=== PATIENT | male | born 2005 | race Caucasian/White ===

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

== ENCOUNTER 2023-05-20 13:40 | Emergency (ER) | payer MEDICAID, SELFPAY ==
[2023-05-20 13:48] VITALS: BP 115/70; PULSE 100; RESP 16; TEMP 36.8; O2SAT 96; BMI 18.3
--- NOTE | 2023-05-20 14:38 | CRLHL7_ITS ---
For Patients: As a result of the Cures Act, medical imaging exams and procedure reports are released immediately into your electronic medical record. You may view this report before your referring provider. If you have questions, please contact your health care provider. INDICATION: Right thigh pain, atraumatic. TECHNIQUE: Right femur radiographs, 2 views. COMPARISON: None. FINDINGS: No acute fractures or dislocation. The joint spaces are preserved. No suspicious periosteal reaction or osseous erosions. No significant soft tissue edema or radiopaque foreign bodies. IMPRESSION: No acute fracture or dislocation. Unremarkable radiographs of the right femur. Dictated by Harman Valladares MD @ 05/20/2023 2:57:45 PM (Electronically Signed)
--- NOTE | 2023-05-20 14:43 | ED_ITS ---
HPI - General Adult General Date Seen: 05/20/23 Chief complaint: Extremity Pain/Injury, Lower Stated complaint: R leg pain Time Seen by Provider: 05/20/23 14:28 Source: patient and family Mode of arrival: ambulatory Limitations: no limitations History of Present Illness HPI narrative: Patient is a 17-year-old here with mom for evaluation of pain in his right thigh which has been present for about a week. He notices it most when he is lying down. He denies any injury. On the nurse's note there was mention of bruising and swelling. He has not had any swelling in the distal leg, he has not had radiating pain, he does not have difficulty with ambulation. He does not take any blood thinners, does not have history of DVT or PE. He says he tried ibuprofen and it was not helpful. Related Data Home Medications Medication Instructions Recorded Confirmed No Known Home Medications 03/01/22 05/20/23 Allergies Allergy/AdvReac Type Severity Reaction Status Date / Time No Known Drug Allergies Allergy Verified 05/20/23 13:54 Review of Systems Status of ROS: Reports: 6 or more systems reviewed and unremarkable except as noted in History and below 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, unspecified (ICD-10) Alcohol abuse ?F10.10 - Alcohol abuse, uncomplicated (ICD-10) Marijuana abuse ?F12.10 - Cannabis abuse, uncomplicated (ICD-10) Surgical History H/O hernia repair ?Z98.890 - Other specified postprocedural states (ICD-10) ?Z87.19 - Personal history of other diseases of the digestive system (ICD-10) History of ileostomy ?Z98.890 - Other specified postprocedural states (ICD-10) Status post exploratory laparotomy ?Z98.890 - Other specified postprocedural states (ICD-10) Social History Highest level of school completed/degree received: high school graduate Smoking Status: Never smoker Do you use any of these nicotine containing products: None Second hand tobacco smoke exposure: No How often do you have a drink containing alcohol: 2-4 times a month Alcohol type: beer and hard liquor How many standard drinks containing alcohol do you have on a typical day: 5 or 6 How often do you have six or more drinks on one occasion: Weekly AUDIT-C Alcohol total score: 7 Non-prescribed substance use: marijuana (any form) Caffeine: Yes service: No Exam Narrative: Exam Narrative: Vital signs reviewed In general, alert, nontoxic male, looks comfortable. Extremities: Examination of the right lower extremity shows between normal in appearance. I do not see any swelling, his mom points out several areas where she feels the skin is bruised, I do not actually see any bruising at this time however. There is no distal edema, pulses are intact bilaterally. Distal CMS is intact. No erythema or warmth. He has full range of motion at the knee, intact strength of the quadriceps muscles. Skin: Warm dry well perfused. He is heavily tattooed, but all tattoos are old. No rash or lesion. Const: Vital Signs, click to edit/add: Vital Signs - 24 hr 05/20/23 13:48 Temperature 98.2 F Pulse Rate [Right Pulse Oximeter] 100 Respiratory Rate 16 Blood Pressure [Ri ght Upper Arm] 115/70 Pulse Oximetry 96 Oxygen Delivery Me thod Room Air Documenting provider has reviewed patient's vital signs: yes Course Course ED Course: Mom expresses concern about possible blood clot secondary to a family member having which she says were identical symptoms and subsequently being diagnosed with blood clot. Discussed with her that the pain is in the an atypical location and overall symptoms are not suggestive of DVT. He does not have radicular symptoms to suggest a disc as an etiology. Pain is directly over the anterior thigh, not in an area likely to be meralgia paresthetica. Pain is likely muscular, will do an x-ray to rule out any underlying bony pathology. Recommended otherwise conservative measures, scheduled ibuprofen and ice and primary care follow-up if not improving with conservative measures. No evidence of hematoma or cellulitis. For significant worsening such as diffuse swelling, redness, fevers etcetera, return any time for re-evaluation. Vital Signs Vital signs: Initial Vital Signs Temperature 98.2 F 05/20/23 13:48 Temperature Source Temporal Artery Scan 05/20/23 13:48 Pulse Rate 100 05/20/23 13:48 Respiratory Rate 16 05/20/23 13:48 Blood Pressure 115/70 05/20/23 13:48 Blood Pressure Mean 85 05/20/23 13:48 Blood Pressure Position Sitting 05/20/23 13:48 Pulse Oximetry 96 05/20/23 13:48 Oxygen Delivery Method Room Air 05/20/23 13:48 Vital Signs Temperature 98.2 F 05/20/23 13:48 Pulse Rate 100 05/20/23 13:48 Respiratory Rate 16 05/20/23 13:48 Blood Pressure 115/70 05/20/23 13:48 Pulse Oximetry 96 05/20/23 13:48 Oxygen Delivery Method Room Air 05/20/23 13:48 Temperature 98.2 F 05/20/23 13:48 Pulse Rate 100 05/20/23 13:48 Respiratory Rate 16 05/20/23 13:48 Blood Pressure 115/70 05/20/23 13:48 Pulse Oximetry 96 05/20/23 13:48 Oxygen Delivery Method Room Air 05/20/23 13:48 Discharge Plan Discharge Clinical Impression: Acute pain of right thigh Patient Disposition: Home, Self-Care Condition: Stable Instructions: Leg Pain (ED) Additional Instructions: I would recommend a combination of ibuprofen, 400 mg 3 times daily +/-1000 mg Tylenol 3 times daily. Ice 2 to 3 times a day. If no improvement despite conservative measures over the next week, follow-up with primary care for recheck. Return any time for acute changes such as significant swelling of the leg, diffuse redness, fevers, or other significant changes. Prescriptions: No Action No Known Home Medications Follow Up/Referrals: Provider,Not a Local [Primary Care Provider] - Stand Alone Forms: MyHealth Info Instructions
--- OUTSIDE RECORDS SUMMARY | 2023-05-20 15:01 | XMS_ITS | Referral Summary ---
Author Name Unknown Organization [facility] Address [address] [place] [address] Care Team Providers Care Soda Flaker Name Role Phone Elsewhere, Pcp Primary Care Provider Unavailabl e Source Comments Patient records contain information from all sites at [facility]. For routine questions regarding patient records, call [phone] during business hours, M-F 8:00 AM - 5:00 PM Central Time. Record requests for emergency care only can be directed to [phone] at any time.[facility] Encounters Date Type Department Care Team Description 05/06/2023 9:23 AM CALENDERER - 05/06/2023 11:59 PM [facility] Hospital Encounter Division of marketing senior recruiter in [place], [place] [address] [place] [phone] Vince Bai M.D., D.D.S. Discharge Disposition: Home or Self Care 05/06/2023 8:59 AM CALENDERER - 05/06/2023 9:22 AM [facility] Hospital Encounter Division of marketing senior recruiter in [place], [place] [address] [place] [phone] Vince Bai M.D., D.D.S. Impacted Tooth Third Molar (Primary Dx) Discharge Disposition: Home or Self Care from Last 3 Months Allergies No known active allergies Medications Medication Sig Dispensed Refills Start Date End Date Status oxyCODONE (ROXICODONE) 5 mg immediate release tabletIndications:Acu te Pain Take 1-2 tablets (5-10 mg total) by mouth every 4 (four) hours as needed for pain 10 tablet 0 05/06/2023 Active Active Problems Problem Noted Date Diagnosed Date Impacted Tooth Third Molar 05/06/2023 Immunizations Name Administration Dates Next Due DTaP (Infanrix, Tripedia) 01/05/2008,10/14/2007, 06/16/2005 DTaP / Hep B / IPV (Pediarix) 07/23/2004, 005,03/03/2004 HepA Pediatric/Adolescent 11/19/2009,10/14/2007 Hib (PRP-T) (ACTHIB, HIBERIX) 05/07/2004, 004 Hib-HepB 06/16/2005 IPV 01/05/2008,10/14/2007 Influenza, Unspecified 03/27/2010,02/19/2005, MMR 10/14/2007,06/16/2005 PCV7 (discontinued) 06/16/2005,07/23/2004,2004,03/03/2004 TABATHA 10/14/2007,06/16/2005 Social History Tobacco Use Types Packs/Day Years Used Date Smoking Tobacco: Never Smokeless Tobacco: Never Tobacco Cessation:Counseling Given: Not Answered Alcohol Use Standard Drinks/Week Comments Yes 0 (1 standard drink = 0.6 oz pur e alcohol) Nutrition Answer Date Recorded Nutrition: EVOO Fat Source Unknown 04/20 Nutrition: Servings of Fruits/Vegetables per Day Not on file 04/20/2023 Dental Answer Date Recorded Dental: Regular Dentist Unknown 04/20/20 Sex and Gender Information Value Date Recorded Sex Assigned at Not on file Gender Identity Not on file Sexual Orientation Not on file Last Filed Vital Signs Vital Sign Reading Time Taken Comments Blood Pressure 136/90 05/06/2023 10:40 AM CALENDERER Pulse 98 05/06/2023 10:41 AM CALENDERER Temperature - - Respiratory Rate - - Oxygen Saturation 100% 05/06/2023 10:41 AM CALENDERER Inhaled Oxygen Concentration - - Weight 50.4 kg (111 lb 1.8 oz) 05/06/2023 9:34 A M CALENDERER Height 165 cm (5' 4.96) 05/06/2023 9:34 AM CALENDERER Body Mass Index 18.51 05/06/2023 9:34 AM CALENDERER Plan of Treatment Not on file Procedures Procedure Name Priority Date/Time Associated Diagnosis Comments OMS PANOREX Routine 05/06/2023 10:17 AM CALENDERER Impacted Tooth Third Molar from Last 3 Months Results * OMS Panorex (05/06/2023 10:17 AM CALENDERER) Vince Bai M.D., LynneSAnu PROCEDURE/M INOR SURGICAL ORDERABLES from Last 3 Months Care Teams Soda Flaker Relationship Specialty Start Date End Date Elsewhere, Pcp PCP - General 12/25/18
--- OUTSIDE RECORDS SUMMARY | 2023-05-20 15:01 | XMS_ITS | Encounter Summary ---
Author Name Unknown Organization [facility] Address [address] [place] [id number] Care Team Providers Care Senior Behavioral Scientist Name Role Phone Elsewhere, Pcp Primary Care Provider Unavailabl e Reason for Visit * Outpatient (Routine) - Closed Specialty Diagnoses / Procedures Referred By Contac t Referred To Contact Diagnoses Impacted Tooth Third Molar Procedures OMS Panorex Vince Bai M.D., D.D.S. [address] [place] [phone] [facility] Referral ID Status Reason Start Date Expiration Date Visits Re quested Visits Authorized [id number] Closed 05/06/2023 05/05/2024 1 1 Encounter Details Date Type Department Care Team (Latest Contact Info) Description 05/06/2023 9:23 AM PHOTOGRAPH PRINTER - 05/06/2023 11:59 PM [facility] Hospital Encounter Division of nurse advisor in [place], [place] [address] [place] [phone] Vince Bai M.D., D.D.S. [address] [place] [phone] Discharge Disposition: Home or Self Care Social History Tobacco Use Types Packs/Day Years Used Date Smoking Tobacco: Never Smokeless Tobacco: Never Alcohol Use Standard Drinks/Week Comments Yes 0 [...] on file Sexual Orientation Not on file documented as of this encounter Medications at Time of Discharge Medication Sig Dispensed Refills Start Date End Date oxyCODONE (ROXICODONE) 5 mg immediate release tabletIndications:Acute Pain Take 1-2 tablets (5-10 mg total) by mouth every 4 (four) hours as needed for pain 10 tablet 0 05/06/2023 documented as of this encounter Plan of Treatment Not on file documented as of this encounter Procedures Procedure Name Priority Date/Time Associated Diagnosis Comments OMS PANOREX Routine 05/06/2023 10:17 AM PHOTOGRAPH PRINTER Impacted Tooth Third Molar documented in this encounter Results * OMS Panorex (05/06/2023 10:17 AM PHOTOGRAPH PRINTER) Vince Bai M.D., D.D.S. PROCEDURE/M INOR SURGICAL ORDERABLES documented in this encounter Visit Diagnoses Not on filedocumented in this encounter Care Teams Senior Behavioral Scientist Relationship Specialty Start Date End Date Elsewhere, Pcp PCP - General 12/25/18 documented as of this encounter
--- OUTSIDE RECORDS SUMMARY | 2023-05-20 15:01 | XMS_ITS | Clinical Summary ---
Author Name Unknown Organization [facility] Address [address] [place] [address] Care Team Providers Care Clerical Transcriber Name Role Phone Elsewhere, Pcp Primary Care Provider Unavailabl e Source Comments Patient records contain information from all sites at [facility]. For routine questions regarding patient records, call [phone] during business hours, M-F 8:00 AM - 5:00 PM Central Time. Record requests for emergency care only can be directed to [phone] at any time.[facility] Allergies No known active allergies Medications Medication Sig Dispensed Refills Start Date End Date Status oxyCODONE (ROXICODONE) 5 mg immediate release tabletIndications:Acu te Pain Take 1-2 tablets (5-10 mg total) by mouth every 4 (four) hours as needed for pain 10 tablet 0 05/06/2023 Active Active Problems Problem Noted Date Diagnosed Date Impacted Tooth Third Molar 05/06/2023 Encounters Date Type Department Care Team Description 05/06/2023 9:23 AM SUPERVISOR SCENIC ARTS - 05/06/2023 11:59 PM SUPERVISOR [employer] Hospital Encounter Division of elementary reading tutor in [place], [place] [address] [place] [phone] Vince Bai M.D., D.D.S. Discharge Disposition: Home or Self Care 05/06/2023 8:59 AM SUPERVISOR SCENIC ARTS - 05/06/2023 9:22 AM SUPERVISOR SCENIC ARTS Hospital Encounter Division of elementary reading tutor in [place], [place] [address] [place] [phone] Vince Bai M.D., D.D.S. Impacted Tooth Third Molar (Primary Dx) Discharge Disposition: Home or Self Care from Last 3 Months Immunizations Name Administration Dates Next Due DTaP [...] Comments Blood Pressure 136/90 05/06/2023 10:40 AM SUPERVISOR SCENIC ARTS Pulse 98 05/06/2023 10:41 AM SUPERVISOR SCENIC ARTS Temperature - - Respiratory Rate - - Oxygen Saturation 100% 05/06/2023 10:41 AM SUPERVISOR SCENIC ARTS Inhaled Oxygen Concentration - - Weight 50.4 kg (111 lb 1.8 oz) 05/06/2023 9:34 A M SUPERVISOR SCENIC ARTS Height 165 cm (5' 4.96) 05/06/2023 9:34 AM SUPERVISOR SCENIC ARTS Body Mass Index 18.51 05/06/2023 9:34 AM SUPERVISOR SCENIC ARTS Plan of Treatment Health Maintenance Due Date Last Done Comments HIV Screening 2003 Hearing Screening during Well Child Visit 2003 Hepatitis C Screening 2003 1 week Well Child Check-Up 2003 1 month Well Child Check-Up 2003 2 month Well Child Check-Up 01/30/2004 4 month Well Child Check-Up 03/16/2004 6 month Well Child Check-Up 05/16/2004 COVID-19 Vaccine (#1) 06/16/2004 9 month Well Child Check-Up 08/14/2004 12 month Well Child Check-Up 11/13/2004 15 month Well Child Check-Up 02/13/2005 18 month Well Child Check-Up 05/16/2005 2 year Well Child Check-Up 11/13/2005 30 month Well Child Check-Up 05/16/2006 3 year Well Child Check-Up 11/13/2006 4 year Well Child Check-Up 11/14/2007 5 year Well Child Check-Up 11/13/2008 6 year Well Child Check-Up 11/13/2009 7 year Well Child Check-Up 11/13/2010 8 year Well Child Check-Up 11/14/2011 9 year Well Child Check-Up 11/13/2012 10 year Well Child Check-Up 11/13/2013 11 year Well Child Check-Up 11/13/2014 12 year Well Child Check-Up 11/14/2015 13 year Well Child Check-Up 11/13/2016 14 year Well Child Check-Up 11/13/2017 Vision Screening during Well Child Visit 12/14/2017 15 year Well Child Check-Up 11/13/2018 16 year Well Child Check-Up 11/14/2019 17 year Well Child Check-Up 11/13/2020 16 year Well Child Check-Up 11/13/2021 17 year Well Child Check-Up 11/13/2022 Well Child Check-Up ([facility]) 11/13/2022 Influenza Vaccine (#1) 2023 , 03/27/2010, 02/19/2005, Additional history exists Depression Screening (Annual PHQ-2) 04/26/2023 DTaP,Tdap,and Td Vaccines (6 - Td or Tdap) 01/02/2026 01/03/2016, 01/05/2008, 10/14/2007, Additional history exists Hepatitis B Vaccines Completed 06/16/2005, 07/23/2004, 05/07/2004, Additional history exists Pneumococcal vaccine (0-64 years) Aged Out 06/16/2005, 07/23/2004, 05/07/2004, Additional history exists No longer eligible based on patient's age to complete this topic MMR Vaccines Completed 10/14/2007, 06/16/2005 Varicella Vaccines Completed 10/14/2007, 06/16/2005 HPV Vaccines Completed 12/23/2016, 01/03/2016 Meningococcal Vaccine Completed 03/09/2022, 016 Procedures Procedure Name Priority Date/Time Associated Diagnosis Comments OMS PANOREX Routine 05/06/2023 10:17 AM SUPERVISOR SCENIC ARTS Impacted Tooth Third Molar from Last 3 Months Results * OMS Panorex (05/06/2023 10:17 AM SUPERVISOR SCENIC ARTS) Vince Bai M.D., LynneS. PROCEDURE/M INOR SURGICAL ORDERABLES from Last 3 Months Care Teams Clerical Transcriber Relationship Specialty Start Date End Date Elsewhere, Pcp PCP - General 12/25/18
--- OUTSIDE RECORDS SUMMARY | 2023-05-20 15:01 | XMS_ITS ---
Author Name Unknown Organization [facility] Address [address] [place] [address] Care Team Providers Care Reinforcing Steel Machine Operator Name Role Phone Unavailable Unavailable Unavailable Surgery Details Not on file Complications Check Surgery Details section. Procedure Estimated Blood Loss Check Surgery Details section. Procedure Findings Check Surgery Details section. Procedure Specimens Taken Check Surgery Details section.
--- OUTSIDE RECORDS SUMMARY | 2023-05-20 15:01 | XMS_ITS | Clinical Summary ---
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, without psychotic features 04/06/2017 SHANE (generalized anxiety disorder) 04/06/2017 Deliberate self-cutting 04/06/2017 ADHD (attention deficit hype ractivity disorder), combined type 04/06/2017 Oppositional defiant disorder 04/06/2017 Immunizations Name Administration Dates Next Due DTP 10/14/2007 DTaP 01/05/2008,10/14/2007,06/16/2005 [id number]-[id number] (Pediarix) 07/23/2004,05/07/2004,1 2003 HIB PRP-OMP (PedvaxHIB) 05/07/2004,03/03/2004 HIB-HepB (Comvax) 06/16/2005 HPV 9 (Gardasil 9) 12/23/2016,01/03/2016 Hepatitis A (Peds) 11/19/2009 Hepatitis A (Peds),Unspecified 10/14/2007 Hepatitis A, Unspecified 11/19/2009,10/14/2007 Inactivated Polio Vaccine 12/23/2016,02/2008,10/14/2007,08/05,07/23/2004,03/03/2004 Influenza Virus, Unspecified 03/27/2010,02/20/20 05 Influenza, IIV3 (Age >=3 years) 06/18/2004 MMR 10/14/2007,06/16/2005 Meningococcal Vaccine (Menveo) 01/03/2016 Pneumococcal conj 7-Valent (Prevnar 7) 0 06/16/2005,07/23/2004,05/07/2004,03/03 Tdap 01/03/2016 Varicella Vaccine 10/14/2007,06/16/2005 Family History Medical History Relation Name Comments Heart Disease No Family History Relation Name Status Comments Brother 1 Alive Brother 2 Alive Brother 3 Alive Father Alive Mother Alive Social History Tobacco Use Types Packs/Day Years Used Date Smoking Tobacco: Former Smokeless Tobacco: Never Tobacco Cessation:Counseling Given: Yes Alcohol Use Standard Drinks/Week Comments No 0 (1 standard drink = 0.6 oz pur e alcohol) PHQ-2 Answer Date Recorded PHQ-2 TOTAL SCORE 3 09/17/2021 Social Connections Answer Date Recorded Frequency of Communication with Friends and Fami ly Not on file 09/17/2021 Sex and Gender Information Value Date Recorded Sex Assigned at Not on file Gender Identity Not on file Sexual Orientation Not on file Obstetrics History Last Filed Vital Signs Vital Sign Reading Time Taken Comments Blood Pressure 113/76 11/11/2022 1:46 PM CDT Pulse 85 11/11/2022 1:46 PM CDT Temperature 37 ??C (98.6 ??F) 11/11/2022 1:46 PM CDT Respiratory Rate 20 09/03/2013 3:22 PM CDT Oxygen Saturation 98% 11/11/2022 1:46 PM CDT Inhaled Oxygen Concentration - - Weight 52.6 kg (116 lb) 11/11/2022 1:46 PM CDT Height 164 cm (5' 4.57) 09/17/2021 2:03 PM CDT Body Mass Index - - Plan of Treatment Health Maintenance Due Date Last Done Comments COVID-19 vaccine series (#1) 06/16/2004 Well Child Check for age 3-20 01/02/2017 01/03/2016 HIV for age 15-65 12/14/2018 BMI (ht and wt on same day) for age 18+ 12/14/2021 Hepatitis C screening for age 18-79 12/14/2021 Depression screening for age 12+ 09/17/2022 09/17/2021, 07/12/2017, 06/15/2017, Additional history exists Influenza for age 9-49 12/25/2022 0, 02/19/2005, 06/18/2004 Tetanus booster 01/02/2026 01/03/2016 Pneumococcal series for age 6-64 Aged Out 06/16/2005, 07/23/2004, 05/07/2004, Additional history exists No longer eligible based on patient's age to complete this topic Meningococcal series for age 11-21 Aged Out 01/03/2016 No longer eligible based on patient's age to complete this topic Tdap Completed 01/03/2016 HPV series for age 9-26 Completed 12/23/2016, 01/02 Care Teams Circuit Manager Relationship Specialty Start Date End Date Casper Escalante DO [address] [place], [place] [id number] PCP - General Family Practice 03/09/17
--- OUTSIDE RECORDS SUMMARY | 2023-05-20 15:01 | XMS_ITS | Encounter Summary ---
Author Name Unknown Organization [facility] Address [address] [place] [id number] Care Team Providers Care Emergency Room Rn Name Role Phone Elsewhere, Pcp Primary Care Provider Unavailabl e Reason for Referral * Outpatient (Routine) - Closed Specialty Diagnoses / Procedures Referred By Lui tyson Referred To Contact Diagnoses Impacted Tooth Third Molar Procedures OMS Panorex Vince Bai M.D., D.D.S. [address] [place] [phone] [facility] Referral ID Status Reason Start Date Expiration Date Visits Re quested Visits Authorized [id number] Closed 05/06/2023 05/05/2024 1 1 ERY OPERATOR Reason for Visit * Appointment Request (Routine) - Closed Specialty Diagnoses / Procedures Referred By Lui tyson Referred To Contact bank courier Octavio Dumont D.D.S. Referral ID Status Reason Start Date Expiration Date Visits Re quested Visits Authorized [id number] Closed 01/13/2023 01/13/2024 1 1 Encounter Details Date Type Department Care Team (Latest Contact Info) Description 05/06/2023 8:59 AM BINDERY OPERATOR - 05/06/2023 9:22 AM BINDERY OPERATOR Hospital Encounter Division of bank courier in [place], [place] [address] [place] [phone] Vince Bai M.D., D.D.S. [address] [place] [phone] Impacted Tooth Third Molar (Primary Dx) Discharge Disposition: Home or Self Care Social [...] on file documented as of this encounter Last Filed Vital Signs Vital Sign Reading Time Taken Comments Blood Pressure 136/90 05/06/2023 10:40 AM BINDERY OPERATOR Pulse 98 05/06/2023 10:41 AM BINDERY OPERATOR Temperature - - Respiratory Rate - - Oxygen Saturation 100% 05/06/2023 10:41 AM BINDERY OPERATOR Inhaled Oxygen Concentration - - Weight 50.4 kg (111 lb 1.8 oz) 05/06/2023 9:34 A M BINDERY OPERATOR Height 165 cm (5' 4.96) 05/06/2023 9:34 AM BINDERY OPERATOR Body Mass Index 18.51 05/06/2023 9:34 AM BINDERY OPERATOR documented in this encounter Discharge Instructions * Patient Instructions* Melissa Lang L.D.A. - 05/06/2023 10:00 AM BINDERY OPERATOR Images from the original note were not included. Contact Numbers for bank courier During weekday hours (usual business hours) [phone] Evening or Weekends [phone] (ask for the Oral Surgeon program coordinator executive education) Pain Management Recommendations after Removal of Lamont Teeth Start taking pain medication before pain starts - preferably before the local anesthesia has worn off (within first 2-3 hours after your procedure). Get something in your stomach prior to starting the medications to help avoid nausea - a Frosty from [employer] is a good option because you must use a spoon (No straws after extractions) Over the counter medications (Tylenol and Aleve) are the most effective medications to control oralsurgical pain in most instances. Aleve is more potent than Advil or Ibuprofen (3 Aleve = 16 Advil or Ibuprofen tabs) Give the Tylenol and Aleve tablets ON SCHEDULE rather than as needed This will keep these medications at a consistent level in the body, thus helping to control breakthrough pain. Start this schedule as soon as you get home and continue for 3-5 days Tylenol can be taken with an empty stomach. Aleve must be taken with food or milk A small number of patients may be given a prescription for Oxycodone. If this was prescribed, be aware it is a narcotic and is to be used only as needed. Breakfast Aleve (naproxen) 220 mg with food/milk If prescribed, use Oxycodone only as needed to control pain throughout the day and night. Take withfood/milk. Mid-morning Tylenol 1000 mg Lunch Aleve (naproxen) 220 mg with food/milk Mid-afternoon Tylenol 1000 mg Dinner Aleve (naproxen) 220 mg with food/milk Bedtime Tylenol 1000 mg Most patients will need some pain medications for 3 to 5 days after the procedure. At that point the medications can be decreased and then stopped as tolerated Call our practice at any time if you have questions about pain control or problems - we want to make your recovery as comfortable as possible Care After Tooth Removal Surgery Care the Day of Surgery Use this information to help you recover after tooth removal surgery. Start the day of your surgery. Surgical site To control bleeding and to help a blood clot form, your provider places gauze on the surgical site.You are asked to use firm pressure to bite down on the gauze. Be sure you understand when and how to remove or change the gauze. Talk to a member of your health care team if you have questions. If blood clots dislodge or break away, you may have bleeding that delays healing. Avoid these actions, which can dislodge blood clots: Do not rinse your mouth, spit or brush your teeth on the day of your surgery. Do not use straws for five days after surgery. Do not smoke for at least five days after surgery. Smoking can delay healing and lead to a dry socket. Eating and drinking Eat only soft foods for the first few days. Do not chew near the surgical site. Drink clear liquids to help prevent dehydration. Drink enough liquids, about 1 to 2 liters a day, to keep your urine light yellow. Eat solid foods only when you can comfortably chew them. For two weeks after surgery, do not eat hard or crunchy foods such as popcorn or nuts. They can getstuck in the surgical area. This can lead to infection. Other instructions If you use an orthodontic mouth guard, wear it on the day of your surgery only if it fits. The mouth guard may not fit correctly because of swollen gums at the surgical site. If that happens, wait until the mouth guard fits properly, and then wear it as you have been told. Typically, you can wear the mouth guard within a few days. If your health care provider prescribes an antibiotic medication, take it exactly as you have been told until you finish the medication. You are given an ice pack to apply to your face for the first 24 to 48 hours. Apply it as you have been told. It may help lessen pain and inflammation. Ask your health care provider when you may return to school or work. Find out when you may play sports or exercise again. Managing pain You may have pain in the surgical area as well as in other teeth. The amount of pain is different for each person. Pain is a natural part of the healing process. Your health care team is committed tohelping you safely manage your pain so you can do the things that help you heal. Managing pain does not mean you will feel no pain at all. No medication or activity completely takes away pain. Pain usually gets better as you heal. However, it is more likely to do so when you try to be active. For instance, you can walk, do deep breathing exercises, change positions, or do recommended exercises. Good pain management is a team effort. You and your health care providers work together to manage your pain. Talk with your team. Set up a plan that works for you. Your pain management plan may include: Strategies that may lower your pain without taking medications. These include gentle exercises, applying ice or heat, and relaxation. Pikq-hbf-wzaoxzu medications. Prescription medications. Together, you and your health care team can set up a plan to safely manage your pain. The goal of pain management is to make you more comfortable. Doing that helps you get the rest you need to do theactivities that can help you heal. Possible Side Effects and Complications After tooth removal surgery, there is a risk for some side effects and problems, called complications. Talk with a member of your care team about this as needed. Dry socket Dry socket is a possible temporary complication of tooth removal. Typically, a blood clot forms in the socket where a tooth was removed. The clot protects the area as it starts to heal. If a clot breaks away or breaks down too soon, the underlying bone is exposed to saliva, bacteria and food. If this happens, it is usually happens three to seven days after surgery. Dry socket most often affects the sockets of lower back teeth. People who smoke or have diabetes and women who take control pills have the greatest risk for dry socket. Symptoms of dry socket include: Severe, ongoing pain near the surgical site that is not helped by the recommended pain medication. Pain that spreads to the ear, chin or other areas of the jaw and face. Bad breath. Bad taste in the mouth. Treatment includes gently rinsing the affected socket to remove any pieces of food. Pain is managedwith pain medication or a medicated dressing that is sometimes placed into the socket. Infection at the surgical site Be aware of these signs of infection: Temperature of 100.4 degrees Fahrenheit (38 degrees Celsius) or greater. Chills. Increased swelling, tenderness or redness at the site. Increased pain or pain not relieved by pain medications. A bad-smelling odor or new or increased drainage coming from the site. If you have symptoms of dry socket or signs of infection, call your health care team at the number you were given. The number may be different if you call after hours. If you call after business hours, you speak to the resident on duty. Bleeding from the surgical site Some bleeding from the surgical site is normal. Usually it is only enough to make your saliva red. Do not spit out bloody saliva during the first 24 hours after surgery. Swallow it or gently absorb it with a tissue. If you use a tissue, do not touch the surgical site. You could dislodge a blood clot and cause more bleeding. If the bleeding seems to be more than minor oozing, put a piece of folded, moist, clean gauze over the site. The gauze must be moist so it does not stick to the area. Bite down firmly for 20 to 30 minutes without moving the gauze. Then gently pull away the gauze. If bleeding continues, repeat as needed. Instead of gauze, you may put a wet tea bag over the site. Use black tea, not green tea. Bite down firmly for 20 to 30 minutes without moving the tea bag. Then gently pull away the tea bag. If bleeding continues, repeat as needed. Other side effects You may have: Pain in your mouth, jaw or at the site. Swelling and bruising. Nausea, sometimes as a result of anesthesia or sedation, pain medications or antibiotics. To help prevent or lessen nausea, take medications with food or milk. Drink an additional two to three 8-ounce glasses of water a day. Temporary numbness of the teeth, gums, tongue, and chin. If you have numbness that lasts for more than 48 hours, contact your health care provider. A slight fever, usually less than 100.4 degrees Fahrenheit (38 degrees Celsius), for 1 or 2 days after surgery. An earache for a few days. A sore throat for a few days. Dry or cracked corners of the mouth. Use an iksv-ilj-qkgexin lip balm. Care on Days 1 to 4 After Surgery Use this information to help with your recovery. Start the day after your tooth removal surgery. Surgical site Keep your mouth clean. This helps the surgical site heal and prevents infection and other complications. To do this: For five days: Rinse your mouth gently with warm salt water at least 3 to 5 times a day, especiallyafter meals and snacks. To make salt water, mix 1/2 teaspoon of salt in an 8-ounce glass of warm orroom-temperature water. [place] your teeth, tongue and the roof of your mouth. Be very gentle when you brush near the surgical area. If you usually use a mouth wash or fluoride mouth rinse, wait seven days after surgery before you use it. Managing pain, swelling and bruising Manage your pain as your health care provider has told you. Use strategies such as gentle exercises, applying ice or heat, and relaxation to manage your pain and any swelling or bruising. Facial swelling and bruising around the jaw or upper neck are normal after surgery. You may notice that you have the most swelling 48 to 72 hours after surgery. Apply cold packs on the outside of your face during the first 24 to 48 hours. Follow the instructions you are given. Doing this may help control pain and swelling. Swelling can make your jaw feel stiff. You may have a hard time opening your mouth all the way for a few days. If your jaw is still sore or stiff after the swelling goes down, gently massage it. Or put a warm, moist towel on the outside of your face for a few minutes. Good pain management is a team effort. You and your health care providers work together to manage your pain. Talk with your team. Set up a plan that works for you. Preventing sinus complications Some mouth procedures can affect the upper jaw sinuses located above the upper molars. Follow thesedirections to help prevent complications. Do not blow your nose for 7 to 10 days. Instead, use a tissue to gently wipe blood or mucus. Sneeze with your mouth open. This helps reduce the pressure in your sinus areas. Do not block or pinch your nostrils when you sneeze. Use any antibiotic medication, antihistamines, nasal spray, or decongestants prescribed by your surgeon exactly as instructed. Care Beginning Day 5 After Surgery Starting on the fifth day after surgery, use the following information to help with your recovery. Surgical site Flushing with a syringe Your care team may give you a syringe. Usually, you only receive a syringe if your impacted wisdom teeth were removed. The syringe helps you to flush your surgical site. Flushing helps keep food out of your socket. After you eat, follow these instructions. See Figure 1. Fill the syringe with warm water or warm salt water. Hold the syringe tip over the socket. Do not put the tip into the socket. To flush out any food particles, use firm but gentle pressure to push the plunger. Flush until you no longer see food particles. You may need to flush several times. If you have more than one surgical site, repeat for each socket. You may notice some bleeding after you flush the site. This is normal. Continue to flush the area until you no longer sense food getting stuck in the surgical site(s). Flush after each meal or at least twice a day. Do this until you no longer notice an opening or hole. This may take two to three weeks. Flushing without a syringe If your care team did not give you a syringe, use warm salt water to rinse your mouth. Do this after each meal or at least two times per day. Managing pain It is normal to have pain for several days after your tooth removal. Manage your pain as your health care provider has told you. Use strategies such as gentle exercises, applying ice or heat, and relaxation. Take any pain medication exactly as you are told. Take it only for as long as you need it to manage your discomfort. If you have questions about yourpain control, talk with your health care provider. Good pain management is a team effort. You and your health care providers work together to manage your pain. Stitches Surgeons typically use stitches that dissolve within 3 to 10 days. If different stitches are used, talk to your health care provider about when they should be removed. When to Contact Your Health Care Team Contact a member of your health care team if you experience the following: Any signs of infection: Temperature of 100.4 degrees Fahrenheit (38 degrees Celsius) or greater. Chills. Increased swelling, tenderness or redness at the site. Increased pain or pain not relieved by pain medications. A bad-smelling odor or new or increased drainage coming from the site. Increased pain or pain not relieved by pain medications. Concerns about the amount of bleeding, how long it lasts, or if bleeding is not controlled. Symptoms of dry socket. A rash. Difficulty breathing. Severe or continued vomiting. Looking forward Use the directions in this resource to help you recover from your tooth removal surgery. You are an important member of your health care team. Talk with your health care providers if you have questions about caring for yourself after your surgery. This material is for your education and information only. This content does not replace medical advice, diagnosis or treatment. New medical research may change this information. If you have questionsabout a medical condition, always talk with your health care provider. ?? 2019 [facility] ([facility]). All rights reserved. [id number] bank courier ([facility]) Usual Business hours [phone] Evening or Weekends [phone] (ask for the Oral Surgeon program coordinator executive education) ERY OPERATOR documented in this encounter Consult Notes * Russell Rios M.D., D.D.S. - 05/06/2023 10:00 AM CST SUBJECTIVE REASON FOR CONSULT Isaac Cortez Jr. is a 17 y.o. male who presents to bank courier for removal of teeth 16, 17, 32. He has no medical conditions, no known drug allergies. Unfortunately, he consumed solid food around 5 am this morning. MEDICAL HISTORY History reviewed. No pertinent past medical history. SURGICAL HISTORY Past Surgical History: Procedure Laterality Date HYDROCELECTOMY N/A 02/17/2008 Hydrocelectomy ILEOSTOMY OPERATION N/A 01/09/2004 Ileostomy REPAIR OF INGUINAL HERNIA N/A 02/17/2008 Repair of inguinal hernia TONSILLECTOMY AND ADENOIDECTOMY N/A 09/27/2008 Tonsillectomy and adenoidectomy SOCIAL HISTORY Social History Socioeconomic History Marital status: Single Spouse name: Not on file Number of children: Not on file Years of education: Not on file Highest education level: Not on file Occupational History Not on file Tobacco Use Smoking status: Never Smokeless tobacco: Never Vaping Use Vaping Use: former use Substance and Sexual Activity Alcohol use: Yes Drug use: Yes Types: Marijuana Sexual activity: Not on file Other Topics Concern Not on file Social History Narrative Not on file Social Determinants of Health Food Insecurity: Not on file Transportation Needs: Not on file Physical Activity: Not on file Intimate Partner Violence: Not on file Housing Stability: Not on file CURRENT MEDICATIONS Medications No active medications ALLERGIES/CONTRAINDICATIONS No Known Allergies OBJECTIVE PHYSICAL EXAMINATION Extraoral Head and Neck Exam: No masses, cervical lymphadenopathy nor other significant abnormality Intraoral Soft Tissue Exam: No soft tissue pathology Dental and Osseous Structures Exam: Confirms the need to remove the teeth listed above Imaging: Appropriate studies were reviewed including: Panorex ASSESSMENT / PLAN IMPRESSION/REPORT/PLAN: Based on an appropriate review of this patient's referral, clinical history and examination, as well as review of appropriate imaging, treatment will be provided today, specifically removal of teeth 16, 17, 32 under local anesthesia. It was discussed that because he consumed solid food that we would not be able to offer sedation until around 12 pm today. We could also reschedule the appointment. After a lengthy discussion, Isaac opted to have his teeth taken out under local anesthesia. We discussed with the patient and/or their parent/caregiver/health care POA: the risks, benefits, alternatives, anesthesia, possibility of additional procedures, health care team approach, potential for overlapping incisions/procedures, possible use of photography/video, potential for and consent to transfusion, placement of implants, exposure of patient/surgical team. All questions were answeredand consent given to proceed. ERY OPERATOR documented in this encounter OR Notes * Op Note - Russell Rios M.D., LynneS. - 05/06/2023 9:22 AM CST PROCEDURE(S): Extraction of teeth numbers 16, 17 and 32. SURGEON/SUPERVISING UTILIZATION SUPERVISOR: Vince Bai M.D., LynneS. LEAVE SPECIALIST: Russell Rios M.D., LynneS. ANESTHESIA TYPE: Local anesthesia. PRE-OPERATIVE DIAGNOSIS Impacted teeth. POST-OPERATIVE DIAGNOSIS Impacted teeth. COMPLICATIONS None. OPERATIVE NOTE NARRATIVE The patient was prepared in the usual manner for surgery including appropriate monitors. A pre-procedural pause was performed to confirm patient identity and planned procedure(s). After administration of local anesthesia, a secondary intra-procedural pause was performed prior to each individual procedure. Partial-bony impacted teeth number 16, 17 and 32 were removed by elevator technique through an open flap following removal of bone and sectioning of teeth, if necessary, using hand and/or rotary instruments. Routine suturing was utilized as necessary. Patient tolerated the surgery and anesthesia without complication and left the operating room in stable condition. SPECIMENS: None. BLOOD LOSS: Minimal. TPR: 1 Russell Rios M.D., BenitezDAnuS. CT CT Job ID: [id number] ERY OPERATOR documented in this encounter Plan of Treatment Not on file documented as of this encounter Procedures Procedure Name Priority Date/Time Associated Diagnosis Comments OMS PANOREX Routine 05/06/2023 10:17 AM BINDERY OPERATOR Impacted Tooth Third Molar documented in this encounter Results * OMS Panorex (05/06/2023 10:17 AM BINDERY OPERATOR) Vince Bai M.D., DTonya.S. PROCEDURE/M INOR SURGICAL ORDERABLES documented in this encounter Visit Diagnoses Diagnosis Impacted Tooth Third Molar- Primary documented in this encounter Care Teams Emergency Room Rn Relationship Specialty Start Date End Date Elsewhere, Pcp PCP - General 12/25/18 documented as of this encounter
== END 2023-05-20 15:27 | disposition home or self-care (01) ==
LOC: ED 14:58
PROVIDERS: Emergency Provider Emergency Medicine
DX: M79.651 Pain in right thigh (principal)
CPT/HCPCS: 73552; 99283

== ENCOUNTER 2024-10-03 12:49 | Emergency (ER) | payer MEDICAID, SELFPAY ==
--- OUTSIDE RECORDS SUMMARY | 2011-09-17 04:00 | XMS_ITS | Continuity of Care Document ---
Author Organization [facility] Address [address] [address] [place] [address] Phone Care Team Providers Care R Programmer Name Role Phone Celia MATTHEW, Sammie Unavailable Unavaila ble Allergies, Adverse Reactions, Alerts Substance Reaction Status Criticality No Known allergies Medications Medication Instructions Dosage Effective Dates (start - stop) Status Comments multivitamin Chewable Tab take 1 by Oral route every day - Active omeprazole 20 mg Cap, delayed release take 1 capsule (20MG) by oral route every day before a meal 20 MG - Active polyethylene glycol 3350 17 gram/dose Oral Powder take 1 capful by Oral route once times every day - Active Procedures Procedure Date Offic Cons New/estab Mod Routine Serum Collection G8447 Bld Ct; Hg/pltlt Ct Auto/compl 12 Sed Rate, Erythrocyte; Auto Comp Metabolic Panel Lipase Thyroid Stim Hormone Ultrasound, Abdominal, Complete 012 Results Test Name Date and Time Measure Units Reference Range Abnormal Flag Status Comments Panel Description: Comp. Metabolic Panel (14) F inal Glucose, Serum 2011 10:21:1 9 77 mg/dl 65-100 Final BUN 2011 10:21:1 9 13 mg/dl 8-25 Final Creatinine, Serum 2011 10:21:1 9 0.50 mg/dl 0.40-0.80 Final BUN/Creatinine Ratio 2011 10:21:1 9 26.00 Final Sodium, Serum 2011 10:21:1 9 139 mmol/L 135-145 Final Potassium, Serum 2011 10:21:1 9 4.4 mmol/L 3.5-5.1 Final Chloride, Serum 2011 10:21:1 9 103 mmol/L 98-107 Final Carbon Dioxide, Total 2011 10:21:1 9 25 mmol/L 23-31 Final Calcium, Serum 2011 10:21:1 9 9.3 mg/dl 9.0-10.8 Final Protein, Total, Serum 2011 10:21:1 9 7.3 g/dL 6.0-8.0 Final Albumin, Serum 2011 10:21:1 9 4.2 g/dl 3.8-5.4 Final A/G Ratio 2011 10:21:1 9 1.35 Final Bilirubin, Total 2011 10:21:1 9 0.4 mg/dl 0.2-0.9 Final AST (SGOT) 2011 10:21:1 9 34 U/L 2-40 Final ALT (SGPT) 2011 10:21:1 9 32 U/L 8-45 Final Alkaline Phosphatase, Serum 2011 10:21:1 9 291 U/L 50-136 H Final ANGAP 2011 10:21:1 9 15.90 Final Panel Description: Lipase, Serum Final Lipase, Serum 2011 10:21:1 9 96 U/L 73-393 Final Panel Description: Sedimentation Rate, Modified Westergren Final Sedimentation Rate-Westergren 2011 10:21:1 9 11 mm/hr <15 Final Panel Description: CBC With Differential/Platele t Final WBC 2011 10:21:1 9 4.5 K/uL 5.0-14.5 L Final RBC 2011 10:21:1 9 5.00 M/uL 4.00-5.20 Final Hemoglobin 2011 10:21:1 9 13.5 g/dl 11.5-15.5 Final Hematocrit 2011 10:21:1 9 40.9 % 35.0-45.0 Final MCV 2011 10:21:1 9 82 fl 77-95 Final MCH 2011 10:21:1 9 27.1 pg 25.0-33.0 Final MCHC 2011 10:21:1 9 33.0 g/dl 32.0-36.0 Final Platelets 2011 10:21:1 9 174 K/uL 140-440 Final RDW 2011 10:21:1 9 14.2 % 11.5-15.0 Final Neutrophils (Absolute) 2011 10:21:1 9 2.4 K/uL 1.7-7.0 Final Neutrophils 2011 10:21:1 9 52 % 42-72 Final Lymphs (Absolute) 2011 10:21:1 9 1.7 K/uL 0.9-2.9 Final Lymphs 2011 10:21:1 9 38 % 28-48 Final Monocytes(Absolu te) 2011 10:21:1 9 0.2 K/uL <0.9 Final Monocytes 2011 10:21:1 9 5 % 3-6 Final Eos 2011 10:21:1 9 2 % 0-7 Final Eos (Absolute) 2011 10:21:1 9 0.1 K/uL <0.5 Final Basos 2011 10:21:1 9 1 % <3 Final Basos (Absolute) 2011 10:21:1 9 0.0 K/uL <0.3 Final Panel Description: TSH Final TSH 2011 10:21:1 9 1.69 uIU/ml 0.50-4.80 Final Panel Description: Glia(IgG/A)+IgA+T-ESPARZA Final Immunoglobulin A, Qn, Serum 2011 14:41:0 0 88 mg/dL 34-305 Final Performed by:Thierry GONZALES) Deamidated Gliadin Abs, IgA 2011 12:50:0 0 7 units 0-19 Final Negative 0 - 1 9 Weak Positive 20 - 30 Moderate to Strong Positive >30Performed by:Thierry GONZALES) Deamidated Gliadin Abs, IgG 2011 12:50:0 0 2 units 0-19 Final Negative 0 - 1 9 Weak Positive 20 - 30 Moderate to Strong Positive >30Performed by:Thierry GONZALES) t-Transglutamina se (tTG) IgA 2011 14:35:0 0 <2 U/mL 0-3 Final Negative 0 - 3 Weak Positive 4 - 10 Positive >10 . Tissue Transglutaminase (tTG) has been identified as the endomysial antigen. Studies have demonstr- ated that endomysial IgA antibodies have over 99% specificity for gluten sensitive enteropathy.Perform ed by:Thierry GONZALES) Panel Description: Allergens(5) Final Class Description 2011 02:33:[address] [facility] Final Levels of Spec [facility] IgE Class Description of Class -------- ----- - <0.08 0 Negative 0.08 - 0.15 I 0.16 - 0.50 II Increasing 0.51 - 2.50 III levels 2.51 - 12.50 IV of 12.51 - 62.50 V Specific IgE 62.51 - >100.00 AntibodyPerformed by:Thierry GONZALES) [id number] Egg White 2011 21:46:0 0 <0.08 kU/L Class 0 Final Performed by:Thierry GONZALES) U697-TbG Milk (Cow) 2011 21:46:0 0 <0.08 kU/L Class 0 Final Performed by:Thierry GONZALES) N224-EdR Peanut 2011 21:46:0 0 <0.08 kU/L Class 0 Final Performed by:Thierry GONZALES) [id number] Soybean 2011 21:46:0 0 <0.08 kU/L Class 0 Final Performed by:Thierry GONZALES) K347-XxW Wheat 2011 21:46:0 0 <0.08 kU/L Class 0 Final Performed by:Thierry GONZALES) Panel Description: H. pylori IgG, Abs Final H. pylori IgG, Abs 2011 17:29:0 0 <0.9 U/mL 0.0-0.8 Final Negative <0.9 Indeterminate 0.9 - 1.0 Positive >1.0Performed by:LabCoarjun GONZALES) Advance Directives Directive Yes / No Effective Date File Name Resuscitation Not Answered N/A N/A Life Support Not Answered N/A N/A Intubation Not Answered N/A N/A Antibiotics Not Answered N/A N/A IV Fluid Support Not Answered N/A N/A Tube Feed Not Answered N/A N/A Other Directive N/A N/A WARNING:The information contained in this section is historical and is provided for information only and does not constitute a legal document or any assurance that the information is still accurate. Please verify the information with the godoy of the legal document before using it for clinical purposes. Encounters Encounter Description Practice Location Reason(s) For Visit Diagnoses Date Provider Providers Copied on Encounter Offic Cons New/estab Mod [facility], [address] [address], [place], [place], [id number], [place] tel:[phone] [facility] Abdominal pain (chief complaint) Abdominal Pain, UnspecifiedGastroe sophageal Reflux 2 Celia sullivan. [address], [id number] , [place]. tel:[phone] [facility], [address] [address], [place], [place], [id number], [place] tel:[phone] [facility] No Information 2 Daxa Sanchez. [address] [address], [place], [place], [id number] , [place]. tel:[phone] Referring Provider: Sammie Yang MD, [address], [address]. tel:[phone] Family History Family Member Type Diagnosis Age At Onset First degree family history Problem (finding) No history of Crohn's First degree family history Problem (finding) No history of Ulcerative Colitis First degree family history Problem (finding) No Family history of No history of Colon Polyps First degree family history Problem (finding) No history of Colon Rectal Cancer Payers Payer name Insurance type Covered green party ID Authorlynda morelos(s) No Information Social History Type Description Quantity Date Captured Comments Alcohol Use Details Unknown Caffeine Use Details Unknown Tobacco Use Status No Information Smoking Status No Information Sex Male Chief Complaint And Reason For Visit From encounter dated '09/17/2011 09:00'. Abdominal pain (chief complaint) Reason For Referral Reason For Referral No Information History Of Present Illness Encounter Date Complaint History Of Prese nt Illness No Information Functional Status Date Functional Assessmen t No Information Instructions Date Instruction Additional Infor mation No Information Assessments Type Assessment Date No Information Patient Care Teams Name Effective Dates (start - stop) Status Members No Information
--- OUTSIDE RECORDS SUMMARY | 2011-09-17 04:00 | XMS_ITS | Continuity of Care Document ---
Author Organization [facility] Address [address] [address] [place] [address] Phone Care Team Providers Care School Childcare Attendant Name Role Phone Celia MATTHEW, Sammie Unavailable [...] Allergens(5) Final Class Description 2011 02:33:0 0 [facility] of Spec [facility] IgE Class Description of Class -------- ----- - <0.08 0 Negative 0.08 - 0.15 I 0.16 - 0.50 II Increasing 0.51 - 2.50 III levels 2.51 - 12.50 IV of 12.51 - 62.50 V Specific IgE 62.51 - >100.00 AntibodyPerformed by:Thierry GONZALES) [id number] Egg White 2011 21:46:0 0 <0.08 kU/L Class 0 Final Performed by:Thierry GONZALES) L006-AwO Milk (Cow) 2011 21:46:0 0 <0.08 kU/L Class 0 Final Performed by:Thierry GONZALES) R772-HpK Peanut 2011 21:46:0 0 <0.08 kU/L Class 0 Final Performed by:Thierry GONZALES) N156-QfM Soybean 2011 21:46:0 0 <0.08 kU/L Class 0 Final Performed by:Thierry GONZALES) I212-WdM Wheat 2011 21:46:0 0 <0.08 kU/L Class [...] Copied on Encounter Offic Cons New/estab Mod [facility], [address] [address], [place], [place], [id number], [place] tel:[phone] Pediatric Clinic Abdominal pain (chief complaint) Abdominal Pain, UnspecifiedGastroe sophageal Reflux 2 Celia sullivan. [address], [id number] , [place]. tel:[phone] [facility], [address] [address], [place], [place], [address], [place] tel:[phone] [facility] No Information 2 Daxa Sanchez. [address] [address], [place], [place], [id number] , [place]. tel:[phone] Referring Provider: Sammie Yang MD, [address], [address]. tel:[phone] Family History Family Member Type Diagnosis Age [...]
[2024-10-03 12:52] VITALS: BP 147/101; PULSE 93; RESP 16; TEMP 37; O2SAT 97; BMI 18.9
--- OUTSIDE RECORDS SUMMARY | 2024-10-03 12:52 | XMS_ITS | Clinical Summary ---
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, without psychotic features 04/06/2017 SHANE (generalized anxiety disorder) 04/06/2017 Deliberate self-cutting 04/06/2017 ADHD (attention deficit hype ractivity disorder), combined type 04/06/2017 Oppositional defiant disorder 04/06/2017 Immunizations Immunization Administration Dates Next Due DTP 10/14/2007 DTaP 01/05/2008,10/14/2007,06/16/2005 [id number] (Pediarix) 07/23/2004,05/07/2004,1 2003 HIB PRP-OMP (PedvaxHIB) 05/07/2004,03/03/2004 HIB-HepB (Comvax) 06/16/2005 HPV 9 (Gardasil 9) 12/23/2016,01/03/2016 Hepatitis A (Peds) 11/19/2009 Hepatitis A (Peds),Unspecified 10/14/2007 Hepatitis A, Unspecified 11/19/2009,10/14/2007 Inactivated Polio Vaccine 12/23/2016,02/2008,10/14/2007,08/05,07/23/2004,03/03/2004 Influenza Virus, Unspecified 03/27/2010,02/20/20 05 Influenza, IIV3 (Age >=3 years) 06/18/2004 MENINGOCOCCAL VACCINE 2 VIAL [id number] (MENVEO) 01/03/2016 MMR 10/14/2007,06/16/2005 Pneumococcal conj 7-Valent (Prevnar 7) 0 06/16/2005,07/23/2004,05/07/2004,03/03 [...] Date Recorded PHQ-2 TOTAL SCORE 3 09/17/2021 Sex and Gender Information Value Date Recorded Sex Assigned at Not on file Legal Sex Male 7:05 AM MARKET EDITOR Gender Identity Not on file Sexual Orientation Not on file Obstetrics History Last Filed Vital Signs Vital Sign Reading Time Taken Comments Blood Pressure 113/76 11/11/2022 1:46 PM CDT Pulse 85 11/11/2022 1:46 PM CDT Temperature 37 C (98.6 F) 11/11/2022 1:46 PM CDT Respiratory Rate 20 09/03/2013 3:22 PM CDT Oxygen Saturation 98% 11/11/2022 1:46 PM CDT Inhaled Oxygen Concentration - - Weight 52.6 kg (116 lb) 11/11/2022 1:46 PM CDT Height 164 cm (5' 4.57) 09/17/2021 2:03 PM CDT Body Mass Index - - Plan of Treatment Health Maintenance Due Date Last Done Comments Well Child Check for age 3-20 01/02/2017 01/03/2016 HIV for age 15-65 12/14/2018 BMI (ht and wt on same day) for age 18+ 12/14/2021 Hepatitis C screening for age 18-79 12/14/2021 Depression screening for age 12+ 09/17/2022 09/17/2021, 07/12/2017, 06/15/2017, Additional history exists COVID-19 vaccine series (2023- season) 2023 Influenza Vaccine (Season Ended) 2024 03/27/2010, 02/19/2005, 06/18/2004 Tetanus booster 01/02/2026 01/03/2016 Hepatitis B series for 19+ Completed 06/16, 07/23/2004, 05/07/2004, Additional history exists Pneumococcal series for age 6-49 Aged Out 06/16/2005, 07/23/2004, 05/07/2004, Additional history exists No longer eligible based on patient's age to complete this topic Meningococcal series for age 11-21 Aged Out 01/03/2016 No longer eligible based on patient's age to complete this topic Tdap Completed 01/03/2016 HPV series for age 9-26 Completed 12/23/2016, 01/02 Insurance [facility] BLUE CROSS OF NON-UT-ITS Care Teams Gas Pumping Station Supervisor Relationship Specialty Start Date End Date Casper Escalante DO [address] [place] [address] PCP - General Family Practice 03/09/17
--- OUTSIDE RECORDS SUMMARY | 2024-10-03 12:52 | XMS_ITS | Clinical Summary ---
Author Organization [facility] Address [address] [place] [address] Care Team Providers Care Enterprise Sales Person Name Role Phone No Ref-Primary, Physician Primary Care Provider Allergies No known active allergies Medications No known medications Active Problems Problem Noted Date Diagnosed Date SBO (small bowel obstruction) 06/19/2024 Social History Tobacco Use Types Packs/Day Years Used Date Smoking Tobacco: Never Assessed Food Insecurity Answer Date Recorded Within the past 12 months, d id you worry that your food would run out before you got money to buy more? No 06/20/2024 Within the past 12 months, d id the food you bought just not last and you didn t have money to get more? No 06/20/2024 Housing Stability Answer Date Recorded Do you have housing? (Loni g is defined as stable permanent housing and does not include staying outside in a car, in a tent, in an abandoned building, in an overnight mcc, or couch-surfing.) Yes 06/20/2024 Are you worried about losing your housing? No 06/20/2024 Financial Resource Strain Answer Date R ecorded Within the past 12 months, h ave you or your family members you live with been unable to get utilities (heat, electricity) when it was really needed? No 06/20/2024 Transportation Needs Answer Date Record ed Within the past 12 months, h as lack of transportation kept you from medical appointments, getting your medicines, non-medical meetings or appointments, work, or from getting things that you need? No 06/20/2024 Interpersonal Safety Answer Date Record ed Do you feel physically and e motionally safe where you currently live? Yes 06/21/2024 Within the past 12 months, h ave you been hit, slapped, kicked or otherwise physically hurt by someone? No 06/21/2024 Within the past 12 months, h ave you been humiliated or emotionally abused in other ways by your partner or ex-partner? No 06/21/2024 Sex and Gender Information Value Date Recorded Sex Assigned at Not on file Legal Sex Male 6:52 PM HULL LINE CREW MEMBER Gender Identity Not on file Sexual Orientation Not on file Last Filed Vital Signs Vital Sign Reading Time Taken Comments Blood Pressure 135/80 06/21/2024 4:10 PM HULL LINE CREW MEMBER Pulse 64 06/21/2024 3:40 AM HULL LINE CREW MEMBER Temperature 36.8 C (98.3 F) 06/21/2024 4:10 PM HULL LINE CREW MEMBER Respiratory Rate 18 06/21/2024 4:10 PM HULL LINE CREW MEMBER Oxygen Saturation 100% 06/21/2024 4:10 PM HULL LINE CREW MEMBER Inhaled Oxygen Concentration - - Weight 52.9 kg (116 lb 9.6 oz) 06/20/2024 2:10 A M HULL LINE CREW MEMBER Height 162.6 cm (5' 4) 06/20/2024 2:10 AM HULL LINE CREW MEMBER Body Mass Index 20.01 06/20/2024 2:10 AM HULL LINE CREW MEMBER Plan of Treatment Health Maintenance Due Date Last Done Comments ADVANCE CARE PLANNING 2003 ANNUAL REVIEW OF HM ORDERS 2003 YEARLY PREVENTIVE VISIT 12/14/2006 HIV SCREENING 12/14/2018 MENINGITIS B VACCINE (1 of 2 - Standard) 2019 HEPATITIS C SCREENING 12/14/2021 COVID-19 VACCINE ( - season) 2023 PHQ-2 (once per calendar year) 2024 INFLUENZA VACCINE (Season Ended) 2024 03/09/2022, 03/27/2010, 02/19/2005, Additional history exists DTAP/TDAP/TD VACCINE (6 - Td or Tdap) 01/02/2026 01/03/2016, 01/05/2008, 10/14/2007, Additional history exists ZOSTER VACCINE (1 of 2) 12/14/2053 HEPATITIS B VACCINE Completed 06/16/2005, 07/23/2004, 05/07/2004, Additional history exists PNEUMOCOCCAL VACCINE: PEDIATRICS (0 to 5 YEARS) AND AT-RISK PATIENTS (6 to 49 YEARS) Aged Out 06/16/2005, 07/23/2004, 05/07/2004, Additional history exists No longer eligible based on patient's age to complete this topic HPV VACCINE Completed 12/23/2016, 01/03/2016 MENINGITIS VACCINE Completed 03/09/2022, 01/03/2016 Insurance [employer] Address: [address] [address] [facility] Advance Directives For more information, please contact: [phone] * Full Code (Latest Code Status on File) Date Activated Date Inactivated Comments 06/19/2024 11:57 PM 06/21/2024 7:23 PM All basic a nd advanced life-sustaining interventions are performed as appropriate Question Answer Comments Code status determined by: Discussion with vicke nt/ legal decision maker Care Teams Enterprise Sales Person Relationship Specialty Start Date End Date No Ref-Primary, Physician PCP - General 06/19/24
--- OUTSIDE RECORDS SUMMARY | 2024-10-03 12:52 | XMS_ITS | Clinical Summary ---
Author Organization [facility] Address [address] [place] [address] Care Team Providers Care Concrete Analyst Name Role Phone Elsewhere, Pcp Primary Care Provider Unavailabl e Source Comments Patient records contain information from all sites at [facility]. For routine questions regarding patient records, call [phone] during business hours, M-F 8:00 AM - 5:00 PM Central Time. Record requests for emergency care only can be directed to [phone] at any time.[facility] Allergies No known active allergies Medications oxyCODONE (ROXICODONE) 5 mg immediate release tabletIndicatio ns:Acute Pain Take 1-2 tablets (5-10 mg total) by mouth every 4 (four) hours as needed for pain 10 tablet 05/06/2023 10:44 AM LAND ACQUISITION MANAGER 05/06/2023 Active Active Problems Problem Noted Date Diagnosed Date Impacted Tooth Third Molar 05/06/2023 Immunizations Immunization Administration Dates Next Due DTaP (Infanrix, [employer]) [...] at Not on file Legal Sex Male 9:24 AM LAND ACQUISITION MANAGER Gender Identity Not on file Sexual Orientation Not on file Last Filed Vital Signs Vital Sign Reading Time Taken Comments Blood Pressure 136/90 05/06/2023 10:40 AM LAND ACQUISITION MANAGER Pulse 98 05/06/2023 10:41 AM LAND ACQUISITION MANAGER Temperature - - Respiratory Rate - - Oxygen Saturation 100% 05/06/2023 10:41 AM LAND ACQUISITION MANAGER Inhaled Oxygen Concentration - - Weight 50.4 kg (111 lb 1.8 oz) 05/06/2023 9:34 A M LAND ACQUISITION MANAGER Height 165 cm (5' 4.96) 05/06/2023 9:34 AM LAND ACQUISITION MANAGER Body Mass Index 18.51 05/06/2023 9:34 AM LAND ACQUISITION MANAGER Plan of Treatment Health Maintenance Due Date Last Done Comments HIV Screening 2003 Hearing Screening during Well Child Visit 2003 Hepatitis C Screening 2003 TB Screening during Well Child Visit 2003 1 week Well Child Check-Up 2003 1 month Well Child Check-Up 2003 2 month Well Child Check-Up 01/30/2004 4 month Well Child Check-Up 03/16/2004 9 month Well Child Check-Up 08/14/2004 15 month Well Child Check-Up 02/13/2005 18 month Well Child Check-Up 05/16/2005 2 year Well Child Check-Up 11/13/2005 30 month Well Child Check-Up 05/16/2006 3 year Well Child Check-Up 11/13/2006 Well Child Check-Up Completed in Past Year 11/13/2006 5 year Well Child Check-Up 11/13/2008 6 year Well Child Check-Up 11/13/2009 7 year Well Child Check-Up 11/13/2010 8 year Well Child Check-Up 11/14/2011 10 year Well Child Check-Up 11/13/2013 12 year Well Child Check-Up 11/14/2015 13 year Well Child Check-Up 11/13/2016 14 year Well Child Check-Up 11/13/2017 Vision Screening during Well Child Visit 12/14/2017 15 year Well Child Check-Up 11/13/2018 16 year Well Child Check-Up 12/11/2019 17 year Well Child Check-Up 11/13/2020 18 year Well Child Check-Up 11/13/2021 19 year Well Child Check-Up 11/13/2022 20 year Well Child Check-Up 11/14/2023 Well Child Check-Up (W[facility]) 11/14/2023 COVID-19 Vaccine ( season) 2023 Influenza Vaccine (#1) 2024 , 03/27/2010, 02/19/2005, Additional history exists Depression Screening (Annual PHQ-2) 04/26/2024 DTaP,Tdap,and Td Vaccines (6 - Td or Tdap) 01/02/2026 01/03/2016, 01/05/2008, 10/14/2007, Additional history exists Hepatitis B Vaccines Completed 06/16/2005, 07/23/2004, 05/07/2004, Additional history exists Pneumococcal vaccine (0-49 years) Aged Out 06/16/2005, 07/23/2004, 05/07/2004, Additional history exists No longer eligible based on patient's age to complete this topic HPV Vaccines Completed 12/23/2016, 01/03/2016 IPV Vaccines Completed 12/23/2016, 12/25, 10/14/2007, Additional history exists Meningococcal Vaccine Completed 03/09/2022, [address] [place] [address] [address] [place] [address] [employer] Care Teams Concrete Analyst Relationship Specialty Start Date End Date Elsewhere, Pcp PCP - General 12/25/18
--- OUTSIDE RECORDS SUMMARY | 2024-10-03 12:52 | XMS_ITS | Patient Health Record ---
Author Organization [facility] Address [address] [address] Care Team Providers Care Merchandise Associate Name Role Phone JEANNETTE MARTINEZ Unavailable [phone] Nino MATTHEW, Geovanni Unavailable [phone] Reason For Referral No Information Plan Of Treatment No Information Insurance Providers Payer Name Payer Address Payer Phone Subscriber Number Group Number Insured Name Patient Relationship to Insured Coverage Start Date Coverage End Date BLUE PLUS [facility] [address] [address] [place] [address] [id number] Isaac Cortez Self - patient is the insured
--- NOTE | 2024-10-03 12:57 | ED_ITS ---
HPI - General Adult General Chief complaint: Skin/Abscess/Foreign Body Stated complaint: little wound on right shoulder Time Seen by Provider: 10/03/24 12:51 History of Present Illness HPI narrative: patient has a spot on the top of the right shoulder. concerned about a piece of metal inside the wound. patient denies pain or no issue with moving the arm. looks like a dark center. no signs of infection. 18-year-old young man presenting to the emergency department with spot on the top and right shoulder. He has been picking at it. Thinks maybe something got into shoulder May 2-3 days ago when wrestling in the yard. Sounds like alcohol may have been involved. Is not really having any pain and does not have trouble moving his arm. No significant drainage. Related Data Home Medications ?Medication ?Instructions ?Recorded ?Confirmed No Known Home Medications 03/01/2209/24 Allergies Allergy/AdvReac Type Severity Reaction Status Date / Time No Known Drug Allergies Allergy Verified 10/03/24 12:57 Review of Systems Status of ROS: Reports: 6 or more systems reviewed and unremarkable except as noted in History and below PFSH [facility] Medical History COVID-19 ?U07.1 - COVID-19 (ICD-10) Anxiety ?F41.9 - Anxiety disorder, unspecified (ICD-10) Depression ?F32.A - Depression, unspecified (ICD-10) Perforated bowel ?K63.1 - Perforation of intestine (nontraumatic) (ICD-10) 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, unspecified (ICD-10) Alcohol abuse ?F10.10 - Alcohol abuse, uncomplicated (ICD-10) Marijuana abuse ?F12.10 - Cannabis abuse, uncomplicated (ICD-10) Surgical History H/O hernia repair ?Z98.890 - Other specified postprocedural states (ICD-10) ?Z87.19 - Personal history of other diseases of the digestive system (ICD-10) History of ileostomy ?Z98.890 - Other specified postprocedural states (ICD-10) Status post exploratory laparotomy ?Z98.890 - Other specified postprocedural states (ICD-10) Social History Highest level of school completed/degree received: high school graduate Smoking Status: Never smoker Do you use any of these nicotine containing products: None Second hand tobacco smoke exposure: No How often do you have a drink containing alcohol: 2-3 times a week Alcohol type: beer and hard liquor How many standard drinks containing alcohol do you have on a typical day: 5 or 6 How often do you have six or more drinks on one occasion: Weekly AUDIT-C Alcohol total score: 8 Non-prescribed substance use: marijuana (any form) Non-prescribed substance use details: daily Caffeine: Yes service: No Exam Narrative: Exam Narrative: Slim. Pleasant. NAD. Breathing easily. Examining the right shoulder shows a dark 16th inch firm spot with in a small surrounding area of open skin. Lightly scabbing around. No inflammatory changes. Not particularly swollen here. Not particularly tender. Is able to manipulate the shoulder without difficulty. I cleanse the area with Betadine and attempt to manipulate this with a pickups. It is quite adherent. Appears to be more deep subcutaneous. Would appear to be metallic Const: Vital Signs, click to edit/add: Vital Signs - 24 hr 10/03/24 12:52 Temperature 98.6 F Pulse Rate [Pulse Oximeter] 93 Respiratory Rate 16 Blood Pressure [Ri ght Upper Arm] 147/101 H Pulse Oximetry 97 Oxygen Delivery Me thod Room Air Documenting provider has reviewed patient's vital signs: yes Course Vital Signs Vital signs: Initial Vital Signs Temperature 98.6 F 10/03/24 12:52 Temperature Source Temporal Artery Scan 10/03/24 12:52 Pulse Rate 93 10/03/24 12:52 Respiratory Rate 16 10/03/24 12:52 Blood Pressure 147/101 H 10/03/24 12:52 Blood Pressure Mean 116 H 10/03/24 12:52 Blood Pressure Position Sitting 10/03/24 12:52 Pulse Oximetry 97 10/03/24 12:52 Oxygen Delivery Method Room Air 10/03/24 12:52 Vital Signs Temperature 98.6 F 10/03/24 12:52 Pulse Rate 93 10/03/24 12:52 Respiratory Rate 16 10/03/24 12:52 Blood Pressure 147/101 H 10/03/24 12:52 Pulse Oximetry 97 10/03/24 12:52 Oxygen Delivery Method Room Air 10/03/24 12:52 Temperature 98.6 F 10/03/24 12:52 Pulse Rate 93 10/03/24 12:52 Respiratory Rate 16 10/03/24 12:52 Blood Pressure 147/101 H 10/03/24 12:52 Pulse Oximetry 97 10/03/24 12:52 Oxygen Delivery Method Room Air 10/03/24 12:52 Medications Administered Medications: Discontinued Medications Generic Name Dose Route Start Last Admin Trade Name Tawanda PRN Reason Stop Dose Admin Lidocaine/Epinephrine 5 ml 10/03/24 13:35 10/03/24 14:12 Lidocaine 1%-Epi 1:100,000 INFILTRATI 10/03/24 13:36 5 ml ONCE ONE Administration Medical Decision Making MDM Narrative Medical decision making narrative: To characterize what is subcutaneous, likely metal wire possibly fishhook, will do an x-ray of the right shoulder. Reviewing these images independently I see that there is a small angie near the distal end of this J curved metallic object would presume this is a fishhook. Does not appear to be deeper disruption of the shoulder. Appears to stay subcut aneous Following repeated cleansing. I numb the subcutaneous skin with lidocaine with epinephrine and I attempt to continue the course of this fishhook out of the skin but there is not enough left as the leg of the fishhook is mostly broken off. Subsequently cut down along with fishhook with a 15 blade and was able to remove this without any difficulty and less tissue trauma. Sewed up with 5 0 Ethilon sutures. Antibiotic ointment and bandage placed. Tolerated well. Radiology over-read below INDICATION: Right shoulder foreign body, characterize for removal TECHNIQUE: Shoulder radiograph 1 view right COMPARISON: None FINDINGS: Bone: No acute fractures or aggressive bone lesions are identified. Joint: The glenohumeral joint is unremarkable. The acromioclavicular joint is unremarkable. Soft tissue: A 9 mm metallic angie is noted in the superior soft tissues. The visualized hemithorax is unremarkable in appearance. No radiopaque foreign bodies are seen. IMPRESSION: 1. No acute osseous injuries or abnormalities are noted. 2. A 9 mm metallic angie is noted in the superior soft tissues. Dictated by: Marcello Dunaway MD @ 10/03/2024 14:01:41 See patient discharge plan for further discussion sutures out in 10 days. antibiotic ointment for 5 days and then to a dry dressing. ok to get wet but try not to soak while sutures are in. for further scar reduction/wound healing if desired -- after the scab falls off, can apply daily vitamin e oil, emu oil or something like maderma or silicone-containing ointments or bandaids daily. especially protect from sun exposure for the first 9 - 12 months. Watch for spreading redness after 2 days accompanied by heat, swelling, marked increase in pain, purulent drainage. Medical Records Medical records reviewed: Yes I reviewed the patient's medical records Discharge Plan Discharge Clinical Impression: Foreign body in skin Patient Disposition: Home, Self-Care Condition: Improved Additional Instructions: sutures out in 10 days. antibiotic ointment for 5 days and then to a dry dressing. ok to get wet but try not to soak while sutures are in. for further scar reduction/wound healing if desired -- after the scab falls off, can apply daily vitamin e oil, emu oil or something like maderma or silicone-containing ointments or bandaids daily. especially protect from sun exposure for the first 9 - 12 months. Watch for spreading redness after 2 days accompanied by heat, swelling, marked increase in pain, purulent drainage. Prescriptions: No Action No Known Home Medications Follow Up/Referrals: Provider,Not a Local [Primary Care Provider, Family Practice] Stand Alone Forms: [facility] Info Instructions
--- NOTE | 2024-10-03 13:15 | CRLHL7_ITS ---
For Patients: As a result of the Century Cures Act, medical imaging exams and procedure reports are released immediately into your electronic medical record. You may view this report before your referring provider. If you have questions, please contact your health care provider. INDICATION: Right shoulder foreign body, characterize for removal TECHNIQUE: Shoulder radiograph 1 view right COMPARISON: None FINDINGS: Bone: No acute fractures or aggressive bone lesions are identified. Joint: The glenohumeral joint is unremarkable. The acromioclavicular joint is unremarkable. Soft tissue: A 9 mm metallic angie is noted in the superior soft tissues. The visualized hemithorax is unremarkable in appearance. No radiopaque foreign bodies are seen. IMPRESSION: 1. No acute osseous injuries or abnormalities are noted. 2. A 9 mm metallic angie is noted in the superior soft tissues. Dictated by: Marcello Dunaway MD @ 10/03/2024 14:01:41 (Electronically Signed)
[2024-10-03] MEDS: LIDOCAINE 1%-EPI 1:100,000 5 ML INFILTRATI (14:12)
== END 2024-10-03 14:27 | disposition home or self-care (01) ==
PROVIDERS: Emergency Provider Family Medicine
DX: S41.021A Laceration with foreign body of right shoulder, initial encounter (principal); Y93.83 Activity, rough housing and horseplay
CPT/HCPCS: 10120; 73030; 99284

== ENCOUNTER 2024-11-18 15:57 | Emergency (ER) | payer MEDICAID, SELFPAY ==
--- OUTSIDE RECORDS SUMMARY | 2024-11-18 15:59 | XMS_ITS | Patient Health Record ---
Author Organization [facility] Address [address] [address] Care Team Providers Care Under Presser Name Role Phone MICHELLE JEANNETTE Unavailable [phone] Nino MATTHEW, Geovanni Unavailable [phone] Reason For Referral No Information Plan Of Treatment No Information Insurance Providers Payer Name Payer Address Payer Phone Subscriber Number Group Number Insured Name Patient Relationship to Insured Coverage Start Date Coverage End Date [facility]UE [employer] [address] [address] [place] [address] [phone] [id number] Isaac Cortez Self - patient is the insured
--- OUTSIDE RECORDS SUMMARY | 2024-11-18 15:59 | XMS_ITS | Clinical Summary ---
Author Organization [facility] Address [address] [place] [address] Care Team Providers Care Carpet Inspector Finished Name Role Phone Elsewhere, Pcp Primary Care Provider Unavailabl e Source Comments Patient records contain information from all sites at [facility]. For routine questions regarding patient records, call [phone] during business hours, M-F 8:00 AM - 5:00 PM Central Time. Record requests for emergency care only can be directed to [phone] at any time.[facility] Allergies No known active allergies Medications oxyCODONE (ROXICODONE) 5 mg immediate release tabletIndicatio ns:Acute Pain Take 1-2 tablets (5-10 mg total) by mouth every 4 (four) hours as needed for pain 10 tablet 05/06/2023 10:44 AM HERB DOCTOR 05/06/2023 Active Active Problems Problem Noted Date [...] drink = 0.6 oz pur e alcohol) Sex and Gender Information Value Date Recorded Sex Assigned at Not on file Legal Sex Male 9:24 AM HERB DOCTOR Gender Identity Not on file Sexual Orientation Not on file Last Filed Vital Signs Vital Sign Reading Time Taken Comments Blood Pressure 136/90 05/06/2023 10:40 AM HERB DOCTOR Pulse 98 05/06/2023 10:41 AM HERB DOCTOR Temperature - - Respiratory Rate - - Oxygen Saturation 100% 05/06/2023 10:41 AM HERB DOCTOR Inhaled Oxygen Concentration - - Weight 50.4 kg (111 lb 1.8 oz) 05/06/2023 9:34 A M HERB DOCTOR Height 165 cm (5' 4.96) 05/06/2023 9:34 AM HERB DOCTOR Body Mass Index 18.51 05/06/2023 9:34 AM HERB DOCTOR Plan of Treatment Health Maintenance Due Date [...] 11/13/2022 18 year Well Child Check-Up 11/14/2023 COVID-19 Vaccine ( season) 2023 Depression Screening (Annual PHQ-2) 04/26/2024 19 year Well Child Check-Up 11/13/2024 Well Child Check-Up (WCC) 11/13/2024 Influenza Vaccine (#1) 2025 , 03/27/2010, 02/19/2005, Additional history exists DTaP,Tdap,and Td Vaccines (6 - Td or [...] exists Meningococcal Vaccine Completed 03/09/2022, 016 Insurance [facility] [employer] Care Teams Carpet Inspector Finished Relationship Specialty Start Date End Date Elsewhere, Pcp PCP - General 12/25/18
--- OUTSIDE RECORDS SUMMARY | 2024-11-18 15:59 | XMS_ITS | Clinical Summary ---
Author Organization [facility] Address [address] 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 Gender Identity Not on file Sexual Orientation Not on file Last Filed Vital Signs Vital Sign Reading Time Taken Comments Blood Pressure 135/80 06/21/2024 4:10 PM FORMWORK CARPENTER Pulse 64 06/21/2024 3:40 AM FORMWORK CARPENTER Temperature 36.8 C (98.3 F) 06/21/2024 4:10 PM FORMWORK CARPENTER Respiratory Rate 18 06/21/2024 4:10 PM FORMWORK CARPENTER Oxygen Saturation 100% 06/21/2024 4:10 PM FORMWORK CARPENTER Inhaled Oxygen Concentration - - Weight 52.9 kg (116 lb 9.6 oz) 06/20/2024 2:10 A M FORMWORK CARPENTER Height 162.6 cm (5' 4) 06/20/2024 2:10 AM FORMWORK CARPENTER Body Mass Index 20.01 06/20/2024 2:10 AM FORMWORK CARPENTER Plan of Treatment Health Maintenance Due Date Last Done Comments ADVANCE CARE PLANNING 2003 ANNUAL REVIEW OF HM ORDERS 2003 YEARLY PREVENTIVE VISIT 12/14/2006 HIV SCREENING 12/14/2018 MENINGITIS B VACCINE (1 of 2 - Standard) 2019 HEPATITIS C SCREENING 12/14/2021 COVID-19 VACCINE ( - season) 2023 PHQ-2 (once per calendar year) 2024 INFLUENZA VACCINE (#1) 2024 2, 03/27/2010, 02/19/2005, Additional history exists DTAP/TDAP/TD VACCINE [...] 01/03/2016 MENINGITIS VACCINE Completed 03/09/2022, 01/03/2016 Insurance Member Subscriber Plan / Payer (Ef fective 2024-Present) Name:Isaac Cortez Jr Relation to Subscriber:Self Name:Isaac Cortez Jr Payer ID:[id number] (NAIC) Group ID:Not on file Type:[facility] Address: [address] [address] [facility] Advance Directives For more information, please contact: [phone] * Full Code (Latest Code Status on File) Date Activated Date Inactivated Comments 06/19/2024 11:57 PM 06/21/2024 7:23 PM All basic a nd advanced life-sustaining interventions are performed as appropriate Question Answer Comments Code status determined by: Discussion with vicke nt/ legal decision maker Care Teams Motor Vehicle Technician Relationship Specialty Start Date End Date No Ref-Primary, Physician PCP - General 06/19/24
--- OUTSIDE RECORDS SUMMARY | 2024-11-18 15:59 | XMS_ITS | Clinical Summary ---
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, without psychotic features 04/06/2017 SHANE (generalized anxiety disorder) 04/06/2017 Deliberate self-cutting 04/06/2017 ADHD (attention deficit hype ractivity disorder), combined type 04/06/2017 Oppositional defiant disorder 04/06/2017 Immunizations Immunization Administration Dates Next Due DTP 10/14/2007 DTaP 01/05/2008,10/14/2007,06/16/2005 [id number] (Pediarix) 07/23/2004,05/07/2004,1 2003 HIB PRP-OMP (PedvaxHIB) 05/07/2004,03/03/2004 [...] on file 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 Gender Identity Not on file Sexual Orientation [...] 06/15/2017, Additional history exists COVID-19 vaccine series ( - 2023-25 season) 2023 Influenza Vaccine (#1) 2024 0, 02/19/2005, 06/18/2004 Tetanus booster 01/02/2026 01/03/2016 Hepatitis B series for 19+ Completed 06/16, 07/23/2004, 05/07/2004, Additional history exists Pneumococcal series for age 6-49 Aged Out 06/16/2005, 07/23/2004, 05/07/2004, Additional history exists No longer eligible based on patient's age to complete this topic Meningococcal series for age 11-21 Aged Out 01/03/2016 No longer eligible based on patient's age to complete this topic HPV series for age 9-26 Completed 12/23/2016, 01/02 Insurance [facility] MEDICAID [facility] MEDICAID BLUE CROSS OF NON-DE-ITS Care Teams Clinical Material Handler Relationship Specialty Start Date End Date Casper Escalante DO [address] [place] [address] PCP - General Family Practice 03/09/17
[2024-11-18 16:04] VITALS: BP 149/102; PULSE 95; RESP 18; TEMP 37.6; O2SAT 97; BMI 19.1
--- NOTE | 2024-11-18 16:13 | ED.GENADULT ---
HPI - General Adult General Chief complaint: Fever Stated complaint: infection in mouth Time Seen by Provider: 11/18/24 16:11 History of Present Illness HPI narrative: Patient reports a few days of fever, cough and sore throat . Today he noted white thing on back of throat. Reports difficulty eating and drinking due to pain. 18-year-old young man presenting to the emergency department with concern of sore throat primarily. Has had some fever and some cough as well. Has been sick about 3 days. Temperature has been measured around 102?. No diarrhea noted. No rashes noted. Has been treating with [id number] guaifenesin. Woke up congested or with pain in his throat such that it felt harder to breathe. Related Data Previous Rx's ?Medication ?Instructions ?Recorded Magic Mouthwash 10 ml PO QID PRN #120 mL 11/18/24 (Lidocaine/Benadryl/Maalox) 120 mL suspension prednisone 20 mg tablet 40 mg (2 x 20 mg) PO DAILY 4 days 11/18/24 #8 tabs Allergies Allergy/AdvReac Type Severity Reaction Status Date / Time No Known Drug Allergies Allergy Verified 11/18/24 16:04 Review of Systems Status of ROS: Reports: 6 or more systems reviewed and unremarkable except as noted in History and below [facility] Medical History COVID-19 ?U07.1 - COVID-19 (ICD-10) Anxiety ?F41.9 - Anxiety disorder, unspecified (ICD-10) Depression ?F32.A - Depression, unspecified (ICD-10) Perforated bowel ?K63.1 - Perforation of intestine (nontraumatic) (ICD-10) 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, unspecified (ICD-10) Alcohol abuse ?F10.10 - Alcohol abuse, uncomplicated (ICD-10) Marijuana abuse ?F12.10 - Cannabis abuse, uncomplicated (ICD-10) Surgical History H/O hernia repair ?Z98.890 - Other specified postprocedural states (ICD-10) ?Z87.19 - Personal history of other diseases of the digestive system (ICD-10) History of ileostomy ?Z98.890 - Other specified postprocedural states (ICD-10) Status post exploratory laparotomy ?Z98.890 - Other specified postprocedural states (ICD-10) Social History Highest level of school completed/degree received: high school graduate Smoking Status: Current every day smoker Do you use any of these nicotine containing products: None Second hand tobacco smoke exposure: No How often do you have a drink containing alcohol: 2-4 times a month Alcohol type: beer and hard liquor How many standard drinks containing alcohol do you have on a typical day: 5 or 6 How often do you have six or more drinks on one occasion: Weekly AUDIT-C Alcohol total score: 7 Non-prescribed substance use: denies use and marijuana (any form) Non-prescribed substance use details: daily Caffeine: Yes service: No Exam Narrative: Exam Narrative: Pleasant. NAD. Slim. Various larger tattoos. Easily conversant. Demonstrate some pain though with swallowing even water. Breathing easily without stridor. Lungs are clear. Heart in elevated rate regular rhythm. Neck is supple small upper anterior cervical lymphadenopathy. Oropharynx is moist. There are small ulcerations the soft palate and in the tonsillar area as well as posterior oropharynx. Skin is warm dry otherwise. Old what look to be self-inflicted cuts to his left inner forearm. Well-healed cm sized scar on the upper right shoulder consistent with foreign body removal that was accomplished by me at last ER visit. Const: Vital Signs, click to edit/add: Vital Signs - 24 hr 11/18/24 16:04 Temperature 99.6 F Pulse Rate [Pulse Oximeter] 95 Respiratory Rate 18 Blood Pressure [Ri ght Upper Arm] 149/102 H Pulse Oximetry 97 Oxygen Delivery Me thod Room Air Documenting provider has reviewed patient's vital signs: yes Course Vital Signs Vital signs: Initial Vital Signs Temperature 99.6 F 11/18/24 16:04 Temperature Source Temporal Artery Scan 11/18/24 16:04 Pulse Rate 95 11/18/24 16:04 Respiratory Rate 18 11/18/24 16:04 Blood Pressure 149/102 H 11/18/24 16:04 Blood Pressure Mean 117 H 11/18/24 16:04 Pulse Oximetry 97 11/18/24 16:04 Oxygen Delivery Method Room Air 11/18/24 16:04 Vital Signs Temperature 99.6 F 11/18/24 16:04 Pulse Rate 95 11/18/24 16:04 Respiratory Rate 18 11/18/24 16:04 Blood Pressure 149/102 H 11/18/24 16:04 Pulse Oximetry 97 11/18/24 16:04 Oxygen Delivery Method Room Air 11/18/24 16:04 Temperature 99.6 F 11/18/24 16:04 Pulse Rate 95 11/18/24 16:04 Respiratory Rate 18 11/18/24 16:04 Blood Pressure 149/102 H 11/18/24 16:04 Pulse Oximetry 97 11/18/24 16:04 Oxygen Delivery Method Room Air 11/18/24 16:04 Medications Administered Medications: Discontinued Medications Generic Name Dose Route Start Last Admin Trade Name Freq PRN Reason Stop Dose Admin Ibuprofen 600 mg 11/18/24 16:43 11/18/24 16:52 Ibuprofen 200 Mg Tablet PO 11/18/24 16:44 600 mg ONCE ONE Administration Medical Decision Making MDM Narrative Medical decision making narrative: Appears to have a viral stomatitis. I do not see indication of abscess otherwise. Not appear to have secondary bacterial infection. Strep swab has already been collected and resulted as negative shortly after I initially saw Mr. Cortez. Did give 600 mg of ibuprofen. Work note written as requested. Appears well generally. Will focus on symptoms although brief course of prednisone might be helpful. See patient discharge plan for further discussion Focus on hydration. Consider sleeping under the mist of a cool mist humidifier. Try sucking on ice chips. Can take up to 600 mg of ibuprofen or up to 850 mg of acetaminophen per dose Can try anesthetic lozenges or sprays like Sucrets or Chloraseptic. Am prescribing a course of prednisone and Magic mouthwash for symptom relief. Medical Records Medical records reviewed: Yes I reviewed the patient's medical records Lab Data Lab results reviewed: Yes I reviewed the patient's lab results Labs: Lab Results 11/18/24 Range/Units 16:03 Group A Strep DNA NOT DETECTED (Not Detectd) Discharge Plan Discharge Clinical Impression: Stomatitis, Upper respiratory infection, viral Patient Disposition: Home w/ Parent or Adult Condition: Stable Additional Instructions: Focus on hydration. Consider sleeping under the mist of a cool mist humidifier. Try sucking on ice chips. Can take up to 600 mg of ibuprofen or up to 850 mg of acetaminophen per dose Can try anesthetic lozenges or sprays like Sucrets or Chloraseptic. Am prescribing a course of prednisone and Magic mouthwash for symptom relief. Prescriptions: New Magic Mouthwash (Lidocaine/Benadryl/Maalox) 120 mL suspension 10 ml PO QID PRNQty: 120 0RF Rx Instructions: Lidocaine Viscous 2 % mucosal solution 40 mL; Maalox 200 mg-200 mg-20 mg/5 mL oral suspension 40 mL; Benadryl 12.5 mg/5 mL oral elixir 40 mL; Per 120 mL SWISH AND SPIT. MAY COMPOUND IF FIRST PRODUCT IS NOT AVAILABLE. prednisone 20 mg tablet 40 mg PO DAILY 4 Days Qty: 8 0RF Follow Up/Referrals: Provider,Not a Local [Primary Care Provider, Family Practice] Stand Alone Forms: MyHealth Info Instructions
[2024-11-18 16:38] LABS: Strep A DNA Probe* NOT DETECTED (Not Detectd)
[2024-11-18] MEDS: IBUPROFEN 200 MG TABLET 600 MG PO (16:52)
== END 2024-11-18 17:22 | disposition home or self-care (01) ==
LOC: ED 17:07
PROVIDERS: Emergency Provider Family Medicine
DX: K12.1 Other forms of stomatitis (principal); J06.9 Acute upper respiratory infection, unspecified; R50.9 Fever, unspecified; F17.210 Nicotine dependence, cigarettes, uncomplicated
CPT/HCPCS: 87631; 87651; 99283; 99284; A9270

== ENCOUNTER 2024-11-22 17:40 | Outpatient (CLI) | payer MEDICAID, SELFPAY | END 2024-11-22 17:41 | disposition home or self-care (01) | LOC: AMB 11-29 14:49 | PROVIDERS: Visit Provider Family Medicine | DX: S01.119A Laceration without foreign body of unspecified eyelid and periocular area, initial encounter (principal); W19.XXXA Unspecified fall, initial encounter; Y92.039 Unspecified place in apartment as the place of occurrence of the external cause | CPT/HCPCS: A0998 ==

== ENCOUNTER 2024-11-22 18:50 | Emergency (ER) | payer MEDICAID, SELFPAY ==
--- OUTSIDE RECORDS SUMMARY | 2024-11-22 18:53 | XMS_ITS | Clinical Summary ---
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, without psychotic features 04/06/2017 SHANE (generalized anxiety disorder) 04/06/2017 Deliberate self-cutting 04/06/2017 ADHD (attention deficit hype ractivity disorder), combined type 04/06/2017 Oppositional defiant disorder 04/06/2017 Immunizations Immunization Administration Dates Next Due DTP 10/14/2007 DTaP 01/05/2008,10/14/2007,06/16/2005 [id number] (Pediarix) 07/23/2004,05/07/2004,1 2003 HIB PRP-OMP (PedvaxHIB) 05/07/2004,03/03/2004 [...] on file 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
--- OUTSIDE RECORDS SUMMARY | 2024-11-22 18:53 | XMS_ITS | Clinical Summary ---
Author Organization [facility] Address [address] [place] [address] Care Team Providers Care Gate Mortiser Operator Name Role Phone Elsewhere, Pcp Primary Care Provider Unavailabl e Source Comments Patient records contain information from all sites at [facility]. For routine questions regarding patient records, call [phone] during business hours, M-F 8:00 AM - 5:00 PM Central Time. Record requests for emergency care only can be directed to [phone] at any time.[facility] Allergies No known active allergies Medications oxyCODONE (ROXICODONE) 5 mg immediate release tabletIndicatio ns:Acute Pain Take 1-2 tablets (5-10 mg total) by mouth every 4 (four) hours as needed for pain 10 tablet 05/06/2023 10:44 AM HEALTHCARE CORPORATE ACCOUNT DIRECTOR 05/06/2023 Active Active Problems Problem Noted Date [...] on file Legal Sex Male 9:24 AM HEALTHCARE CORPORATE ACCOUNT DIRECTOR Gender Identity Not on file Sexual Orientation Not on file Last Filed Vital Signs Vital Sign Reading Time Taken Comments Blood Pressure 136/90 05/06/2023 10:40 AM HEALTHCARE CORPORATE ACCOUNT DIRECTOR Pulse 98 05/06/2023 10:41 AM HEALTHCARE CORPORATE ACCOUNT DIRECTOR Temperature - - Respiratory Rate - - Oxygen Saturation 100% 05/06/2023 10:41 AM HEALTHCARE CORPORATE ACCOUNT DIRECTOR Inhaled Oxygen Concentration - - Weight 50.4 kg (111 lb 1.8 oz) 05/06/2023 9:34 A M HEALTHCARE CORPORATE ACCOUNT DIRECTOR Height 165 cm (5' 4.96) 05/06/2023 9:34 AM HEALTHCARE CORPORATE ACCOUNT DIRECTOR Body Mass Index 18.51 05/06/2023 9:34 AM HEALTHCARE CORPORATE ACCOUNT DIRECTOR Plan of Treatment Health Maintenance Due Date [...] exists Meningococcal Vaccine Completed 03/09/2022, 016 Insurance [facility] [employer] Care Teams Gate Mortiser Operator Relationship Specialty Start Date End Date Elsewhere, Pcp PCP - General 12/25/18
--- OUTSIDE RECORDS SUMMARY | 2024-11-22 18:53 | XMS_ITS | Patient Health Record ---
Author Organization [facility] Address [address] [address] Care Team Providers Care Deputy Head Name Role Phone MICHELLE JEANNETTE Unavailable [phone] Nino MATTHEW, Geovanni Unavailable [phone] Reason For Referral No Information Plan Of Treatment No Information Insurance Providers Payer Name Payer Address Payer Phone Subscriber Number Group Number Insured Name Patient Relationship to Insured Coverage Start Date Coverage End Date [facility] [address] [address] [place] [phone] [id number] Isaac Cortez Self - patient is the insured
--- OUTSIDE RECORDS SUMMARY | 2024-11-22 18:53 | XMS_ITS | Clinical Summary ---
Author Organization [facility] Address [address] 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 Gender Identity Not on file Sexual Orientation Not on file Last Filed Vital Signs Vital Sign Reading Time Taken Comments Blood Pressure 135/80 06/21/2024 4:10 PM ADAPTED PHYSICAL EDUCATION SPECIALIST Pulse 64 06/21/2024 3:40 AM ADAPTED PHYSICAL EDUCATION SPECIALIST Temperature 36.8 C (98.3 F) 06/21/2024 4:10 PM ADAPTED PHYSICAL EDUCATION SPECIALIST Respiratory Rate 18 06/21/2024 4:10 PM ADAPTED PHYSICAL EDUCATION SPECIALIST Oxygen Saturation 100% 06/21/2024 4:10 PM ADAPTED PHYSICAL EDUCATION SPECIALIST Inhaled Oxygen Concentration - - Weight 52.9 kg (116 lb 9.6 oz) 06/20/2024 2:10 A M ADAPTED PHYSICAL EDUCATION SPECIALIST Height 162.6 cm (5' 4) 06/20/2024 2:10 AM ADAPTED PHYSICAL EDUCATION SPECIALIST Body Mass Index 20.01 06/20/2024 2:10 AM ADAPTED PHYSICAL EDUCATION SPECIALIST Plan of Treatment Health Maintenance Due Date [...] 01/03/2016 MENINGITIS VACCINE Completed 03/09/2022, 01/03/2016 Insurance [facility] Advance Directives For more information, please contact: [phone] * Full Code (Latest Code Status on File) Date Activated Date Inactivated Comments 06/19/2024 11:57 PM 06/21/2024 7:23 PM All basic a nd advanced life-sustaining interventions are performed as appropriate Question Answer Comments Code status determined by: Discussion with vicke nt/ legal decision maker Care Teams Fabric Cutter Relationship Specialty Start Date End Date No Ref-Primary, Physician PCP - General 06/19/24
[2024-11-22 18:58] VITALS: BP 132/82; PULSE 98; RESP 20; TEMP 36.8; O2SAT 99; BMI 19.2
== END 2024-11-22 20:10 | disposition home or self-care (01) ==
LOC: ED 19:54
PROVIDERS: Emergency Provider Family Medicine
DX: Z53.21 Procedure and treatment not carried out due to patient leaving prior to being seen by health care provider (principal)
CPT/HCPCS: 99281

== ENCOUNTER 2024-11-22 22:25 | Emergency (ER) | payer MEDICAID, SELFPAY ==
[2024-11-22 22:40] VITALS: BP 128/75; PULSE 94; RESP 16; TEMP 37.7; O2SAT 99; BMI 21.9
--- NOTE | 2024-11-23 00:35 | ED.GENADULT ---
HPI - General Adult General Chief complaint: Animal Bite Stated complaint: dog attack- back of head slit open Time Seen by Provider: 11/23/24 00:35 History of Present Illness HPI narrative: Pt was bit on right thumb by grandma's dog while playing with it, fell backward and hit the back of his head and has a lac on back of head 18-year-old young man presenting to the emergency department following an injury to his scalp. Apparently was playing with grandmother's dog and it bit on his right thumb. Subsequently then Isaac fell backward striking his head. Reason for visit though is the scalp laceration apparently sustained. No loss of consciousness. No neck or back pain. No nausea. Related Data Home Medications ?Medication ?Instructions ?Recorded ?Confirmed No Known Home Medications 11/22/24 11/22/24 Allergies Allergy/AdvReac Type Severity Reaction Status Date / Time No Known Drug Allergies Allergy Verified 11/22/24 22:45 Review of Systems Status of ROS: Reports: 6 or more systems reviewed and unremarkable except as noted in History and below [facility] Medical History COVID-19 ?U07.1 - COVID-19 (ICD-10) Anxiety ?F41.9 - Anxiety disorder, unspecified (ICD-10) Depression ?F32.A - Depression, unspecified (ICD-10) Perforated bowel ?K63.1 - Perforation of intestine (nontraumatic) (ICD-10) 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, unspecified (ICD-10) Alcohol abuse ?F10.10 - Alcohol abuse, uncomplicated (ICD-10) Marijuana abuse ?F12.10 - Cannabis abuse, uncomplicated (ICD-10) Surgical History H/O hernia repair ?Z98.890 - Other specified postprocedural states (ICD-10) ?Z87.19 - Personal history of other diseases of the digestive system (ICD-10) History of ileostomy ?Z98.890 - Other specified postprocedural states (ICD-10) Status post exploratory laparotomy ?Z98.890 - Other specified postprocedural states (ICD-10) Social History Highest level of school completed/degree received: high school graduate Smoking Status: Current every day smoker Do you use any of these nicotine containing products: None Second hand tobacco smoke exposure: No How often do you have a drink containing alcohol: 2-4 times a month Alcohol type: beer and hard liquor How many standard drinks containing alcohol do you have on a typical day: 5 or 6 How often do you have six or more drinks on one occasion: Weekly AUDIT-C Alcohol total score: 7 Non-prescribed substance use: denies use and marijuana (any form) Non-prescribed substance use details: daily Caffeine: Yes service: No Exam Narrative: Exam Narrative: Slim. Pleasant. NAD. Skin is warm and dry. Cranial nerves 2-12 intact. Pupils are equal and briskly reactive at 3 mm. Mentating normally. Heart in mildly elevated rate and regular rhythm. Neck is supple nontender. Back nontender. Moving all extremities without difficulty. On the upper occipital scalp there is a 1 and 1/2 inch laceration that bleeds easily when manipulated. Gapping. Later examine the right thumb. There is a radial side linear scrape longitudinally along the radial side thumb along the nail. No major deformity appreciated. Const: Vital Signs, click to edit/add: Vital Signs - 24 hr 11/22/24 22:40 Temperature 99.9 F H Pulse Rate [Right Pulse Oximeter] 94 Respiratory Rate 16 Blood Pressure [Ri ght Upper Arm] 128/75 Pulse Oximetry 99 Oxygen Delivery Me thod Room Air Documenting provider has reviewed patient's vital signs: yes Course Vital Signs Vital signs: Initial Vital Signs Temperature 99.9 F H 11/22/24 22:40 Temperature Source Temporal Artery Scan 11/22/24 22:40 Pulse Rate 94 11/22/24 22:40 Pulse Rhythm Regular, Irregularly Irregular 11/22/24 22:40 Pulse Strength 3+ Normal 11/22/24 22:40 Respiratory Rate 16 11/22/24 22:40 Blood Pressure 128/75 11/22/24 22:40 Blood Pressure Mean 92 11/22/24 22:40 Blood Pressure Position Sitting 11/22/24 22:40 Pulse Oximetry 99 11/22/24 22:40 Oxygen Delivery Method Room Air 11/22/24 22:40 Vital Signs Temperature 99.9 F H 11/22/24 22:40 Pulse Rate 94 07/30/25 22:40 Respiratory Rate 16 11/22/24 22:40 Blood Pressure 128/75 11/22/24 22:40 Pulse Oximetry 99 11/22/24 22:40 Oxygen Delivery Method Room Air 11/22/24 22:40 Temperature 99.9 F H 11/22/24 22:40 Pulse Rate 94 11/22/24 22:40 Respiratory Rate 16 11/22/24 22:40 Blood Pressure 128/75 11/22/24 22:40 Pulse Oximetry 99 11/22/24 22:40 Oxygen Delivery Method Room Air 11/22/24 22:40 Medical Decision Making MDM Narrative Medical decision making narrative: I do not believe needs head imaging. Laceration does need closure. The thumb Isaac assisted with cleaning and bandaging. Cleansed also the scalp with Shur-Clens solution. I initially began to the close this scalp laceration with erendira but this just was not resulting in ideal closure. Too proud/heaped up and I think will be irritating given location. Removed placed erendira and have switched to intent to suture. Anesthetized with lidocaine with epinephrine total of 2 mL. Sutured with 4-0 prolene in his black hair with excellent wound approximation and control of bleeding. Isaac tolerated this very well. See patient discharge plan for further discussion Change dressing on your thumb daily with antibiotic ointment over the next 5 days. Watch for spreading redness after 2 days accompanied by heat, swelling, marked increase in pain, purulent drainage. You might want a place this chux pad on your pillow tonight as likely will ooze a little bit of blood yet. Total of 5 sutures were placed. Sutures out in about 7 days. Okay to get wet but try not to soak while your sutures are in. Discharge Plan Discharge Clinical Impression: Closed head injury, Laceration of scalp, Dog bite Patient Disposition: Home, Self-Care Condition: Improved Additional Instructions: Change dressing on your thumb daily with antibiotic ointment over the next 5 days. Watch for spreading redness after 2 days accompanied by heat, swelling, marked increase in pain, purulent drainage. You might want a place this chux pad on your pillow tonight as likely will ooze a little bit of blood yet. Total of 5 sutures were placed. Sutures out in about 7 days. Okay to get wet but try not to soak while your sutures are in. Prescriptions: No Action No Known Home Medications Follow Up/Referrals: Provider,Not a Local [Primary Care Provider, Family Practice] Stand Alone Forms: MyHealth Info Instructions
--- OUTSIDE RECORDS SUMMARY | 2024-11-23 01:36 | XMS_ITS | Patient Health Record ---
Author Organization [facility] Address [address] [address] Care Team Providers Care Production Expediter Name Role Phone MICHELLE JEANNETTE Unavailable [phone] Nino MATTHEW, Geovanni Unavailable [phone] Reason For Referral No Information Plan Of Treatment No Information Insurance Providers Payer Name Payer Address Payer Phone Subscriber Number Group Number Insured Name Patient Relationship to Insured Coverage Start Date Coverage End Date [employer] [facility] [address] [address] [place] [address] [id number] Isaac Cortez Self - patient is the insured
--- OUTSIDE RECORDS SUMMARY | 2024-11-23 01:36 | XMS_ITS | Clinical Summary ---
Author Organization [facility] Address [address] [place] [address] Care Team Providers Care Software Engineer Kernel Name Role Phone No Ref-Primary, Physician Primary [...] in an abandoned building, in an overnight retirement, or couch-surfing.) Yes 06/20/2024 Are you worried [...] on file Legal Sex Male 6:52 PM SIGNAL TIMER Gender Identity Not on file Sexual Orientation Not on file Last Filed Vital Signs Vital Sign Reading Time Taken Comments Blood Pressure 135/80 06/21/2024 4:10 PM SIGNAL TIMER Pulse 64 06/21/2024 3:40 AM SIGNAL TIMER Temperature 36.8 C (98.3 F) 06/21/2024 4:10 PM SIGNAL TIMER Respiratory Rate 18 06/21/2024 4:10 PM SIGNAL TIMER Oxygen Saturation 100% 06/21/2024 4:10 PM SIGNAL TIMER Inhaled Oxygen Concentration - - Weight 52.9 kg (116 lb 9.6 oz) 06/20/2024 2:10 A M SIGNAL TIMER Height 162.6 cm (5' 4) 06/20/2024 2:10 AM SIGNAL TIMER Body Mass Index 20.01 06/20/2024 2:10 AM SIGNAL TIMER Plan of Treatment Health Maintenance Due Date [...] 01/03/2016 MENINGITIS VACCINE Completed 03/09/2022, 01/03/2016 Insurance [facility] Advance Directives For more information, please contact: [phone] * Full Code (Latest Code Status on File) Date Activated Date Inactivated Comments 06/19/2024 11:57 PM 06/21/2024 7:23 PM All basic a nd advanced life-sustaining interventions are performed as appropriate Question Answer Comments Code status determined by: Discussion with vicke nt/ legal decision maker Care Teams Software Engineer Kernel Relationship Specialty Start Date End Date No Ref-Primary, Physician PCP - General 06/19/24
--- OUTSIDE RECORDS SUMMARY | 2024-11-23 01:36 | XMS_ITS | Clinical Summary ---
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
--- OUTSIDE RECORDS SUMMARY | 2024-11-23 01:36 | XMS_ITS | Clinical Summary ---
Author Organization [facility] Address [address] [place] [address] Care Team Providers Care Title I Coordinator Name Role Phone Elsewhere, Pcp Primary Care Provider Unavailabl e Source Comments Patient records contain information from all sites at [facility]. For routine questions regarding patient records, call [phone] during business hours, M-F 8:00 AM - 5:00 PM Central Time. Record requests for emergency care only can be directed to [phone] at any time.[facility] Allergies No known active allergies Medications oxyCODONE (ROXICODONE) 5 mg immediate release tabletIndicatio ns:Acute Pain Take 1-2 tablets (5-10 mg total) by mouth every 4 (four) hours as needed for pain 10 tablet 05/06/2023 10:44 AM REAL ESTATE REP 05/06/2023 Active Active Problems Problem Noted Date [...] on file Legal Sex Male 9:24 AM REAL ESTATE REP Gender Identity Not on file Sexual Orientation Not on file Last Filed Vital Signs Vital Sign Reading Time Taken Comments Blood Pressure 136/90 05/06/2023 10:40 AM REAL ESTATE REP Pulse 98 05/06/2023 10:41 AM REAL ESTATE REP Temperature - - Respiratory Rate - - Oxygen Saturation 100% 05/06/2023 10:41 AM REAL ESTATE REP Inhaled Oxygen Concentration - - Weight 50.4 kg (111 lb 1.8 oz) 05/06/2023 9:34 A M REAL ESTATE REP Height 165 cm (5' 4.96) 05/06/2023 9:34 AM REAL ESTATE REP Body Mass Index 18.51 05/06/2023 9:34 AM REAL ESTATE REP Plan of Treatment Health Maintenance Due Date [...] exists Meningococcal Vaccine Completed 03/09/2022, 016 Insurance [employer] Care Teams Title I Coordinator Relationship Specialty Start Date End Date Elsewhere, Pcp PCP - General 12/25/18
== END 2024-11-23 01:56 | disposition home or self-care (01) ==
PROVIDERS: Emergency Provider Family Medicine
DX: S01.01XA Laceration without foreign body of scalp, initial encounter (principal); S60.371A Other superficial bite of right thumb, initial encounter; W54.0XXA Bitten by dog, initial encounter; W01.10XA Fall on same level from slipping, tripping and stumbling with subsequent striking against unspecified object, initial encounter
CPT/HCPCS: 12001; 99283; 99284